=== PATIENT | male | born 1970 | race American Indian/Alaskan Native ===

== ENCOUNTER 2017-07-04 14:29 | Inpatient (IN) | payer MEDICAID ==
[2017-07-04 15:10] LABS: BASO # 0.1 K/uL (0.0-0.2); BASO % 0.7 % (0.0-2.0); EOS # 0.2 K/uL (0.0-0.7); EOS % 2.1 % (0.0-4.0); HEMOGLOBIN 10.5 g/dL (12.0-18.0); LYMPH # 2.4 K/uL (1.0-4.3); LYMPH % 21.4 % (20.0-40.0); MEAN CELL VOLUME 88.2 fL (80.0-94.0); MEAN CORPUSCULAR HEMOGLOBIN 28.2 pg (27.0-31.0); MEAN PLATELET VOLUME 8.4 fL (7.2-11.7); MONO % 9.1 % (0.0-10.0); NEUT # 7.4 K/uL (1.8-7.0); NEUT % 66.7 % (50.0-75.0); RBC 3.73 Mil/uL (4.40-5.90); RED CELL DISTRIBUTION WIDTH 15.3 % (11.5-14.5); WHITE BLOOD COUNT 11.1 K/uL (4.8-10.8)
[2017-07-04 15:25] LABS: SQUAMOUS EPITHIAL < 1 /hpf (0-5); URINE BILIRUBIN NEGATIVE (NEGATIVE); URINE BLOOD NEGATIVE (NEGATIVE); URINE CLARITY Clear (Clear); URINE COLOR Yellow (YELLOW); URINE GLUCOSE (UA) NORMAL (Normal); URINE LEUKOCYTE ESTERASE NEG Leu/uL (Negative); URINE NITRATE NEGATIVE (NEGATIVE); URINE PROTEIN 2+ mg/dL (NEGATIVE)
[2017-07-04 15:29] LABS: BARBITURATES, UR NEGATIVE (NEGATIVE); BENZODIAZEPINES, UR NEGATIVE (NEGATIVE); PHENCYCLIDINE, UR NEGATIVE (NEGATIVE)
[2017-07-04 15:33] LABS: ALB/GLOB RATIO 1.1 (1.0-2.1); ALBUMIN 4.1 g/dL (3.5-5.0); ALT/SGPT 27 U/L (21-72); AST/SGOT 35 U/L (17-59); BLOOD UREA NITROGEN 34 mg/dL (9-20); CALCIUM 7.7 mg/dl (8.6-10.4); GFR AFRICAN-AMERICAN 9; GFR NON-AFRICAN AMERICAN 8
[2017-07-04 16:05] LABS: OPIATES, UR POSITIVE (NEGATIVE)
--- NOTE | 2017-07-04 17:29 | C.PDOC ---
History Of Present Illness 47 y/o male hx ESRD on HD presents to the ED requesting for Detox for heroin abuse. Patient was re-screened by crisis on a phone and has a bed holding for him. The patient states he has been a heroin abuser for 15 years. The patient has been taking injections of 50-100 bags a day and last use was 10am today. The last HD was yesterday. The patient denies physical complaints, and suicidal ideation. Time Seen by Provider: 07/04/17 15:25 Chief Complaint (Nursing): Substance Abuse History Per: Patient History/Exam Limitations: no limitations Onset/Duration Of Symptoms: Hrs Current Symptoms Are (Timing): Still Present Modifying Factor(s): Other (Heroin ) Associated Symptoms: denies: Suicidal Thoughts Additional History Per: Patient Past Medical History Reviewed: Historical Data, Nursing Documentation, Vital Signs Vital Signs: Last Vital Signs Temp 98.4 F 07/04/17 19:26 Pulse 56 L 07/04/17 19:26 Resp 18 07/04/17 19:26 BP 149/85 07/04/17 19:26 Pulse Ox 98 07/04/17 20:59 - Medical History PMH: HTN Denies: Diabetes, Hepatitis, HIV, Seizures, Sexually Transmitted Disease Surgical History: No Surg Hx Family History: States: No Known Family Hx - Social History Hx Alcohol Use: No Hx Substance Use: Yes - Immunization History Hx Tetanus Toxoid Vaccination: Yes Hx Influenza Vaccination: Yes Hx Pneumococcal Vaccination: No Review Of Systems Except As Marked, All Systems Reviewed And Found Negative. Constitutional: Negative for: Fever, Chills Respiratory: Negative for: Shortness of Breath Neurological: Positive for: Altered Mental Status, Other (last use of Heroin was 10am today). Negative for: Dizziness Psych: Negative for: Suicidal ideation Physical Exam - Physical Exam Appears: Non-toxic, No Acute Distress Skin: Warm, Dry Head: Atraumatic, Normacephalic Eye(s): bilateral: Normal Inspection Oral Mucosa: Moist Neck: Supple Chest: Symmetrical, Other (AV fistula right upper chest with no signs of infection ) Cardiovascular: Rhythm Regular Respiratory: Normal Breath Sounds, No Rales, No Rhonchi Gastrointestinal/Abdominal: Soft, No Tenderness, No Guarding, No Rebound Back: Normal Inspection Extremity: Capillary Refill (2<sec. ) Neurological/Psych: Oriented x3, Normal Speech, Normal Cognition, Other (no suicidal ideation ) Gait: Steady ED Course And Treatment - Laboratory Results Result Diagrams: 07/04/17 15:05 07/04/17 15:05 O2 Sat by Pulse Oximetry: 98 (RA) Progress Note: Labs were sent . Patient is medically cleared for detox and was seen by Crisis and accepted for detox admission. Upon reassessment, the patient is afebrile The patient will need to have dialysis tomorrow. Disposition - Disposition Disposition: HOSPITALIZED Disposition Time: 17:28 Condition: STABLE - Clinical Impression Clinical Impression: Drug dependence, ESRD (end stage renal disease) on dialysis - PA / IT RISK ANALYST / Resident Statement MD/DO has examined the patient and agrees with the treatment plan. - Scribe Statement The provider has reviewed the documentation as recorded by the Popeye Ayers Decision To Admit - Pt Status Changed To: Hospital Disposition Of: Inpatient - Admit Certification Admit to Inpatient:: After my assessment, the patient will require hospitalization for at least two midnights. This is because of the severity of symptoms shown, intensity of services needed, and/or the medical risk in this patient being treated as an outpatient. - InPatient: Physician Admission Certification: I certify that this patient requires 2 or more midnights of care for the following reason:: Detox will need more than 2 days. - . Bed Request Type: Detox Admitting Physician: Vianca Richards Patient Diagnosis: Drug dependence, ESRD (end stage renal disease) on dialysis
--- NOTE | 2017-07-04 18:42 | PCM.BM ---
<Julia Barth - Last Filed: 07/04/17 18:40> Treatment Plan Problems - Problems identified on initial assessmt potiential for opiate withdrawal Date Initiated: 07/04/17 Time Initiated: 18:41 Assessment reference: NA Status: Active Treatment assets and liabiliti Patient Assests: ADL independent Patient Liabilities: dietary restrictions, substance abuse, medical problems - Milieu Protocol Maintain good personal hygiene: daily Encourage regular showers, daily Remind patient to perform daily oral care, daily Assist patient to perform ADL's Maintain personal safety: every shift Educate patient to report safety concerns to staff, every shift Monitor environment for contraband/sharps Medication safety: Monitor for expected outcome, potential side effects: every shift, Assess barriers to learning: every shift, Assess readiness for medication education: every shift <Vance Barnett - Last Filed: 07/05/17 09:51> - Diagnosis (1) Opioid use disorder, severe, dependence Status: Acute Interventions: 07/05/17 09:51 * Assess 7x/week regarding severity of withdrawal * Educate regarding risks, benefits, side effects and alternatives of medications * Use Motivational Interviewing for abstinence * Use CBT for relapse prevention * Medication management for withdrawal symptoms * Encourage medication assisted treatment *
--- NOTE | 2017-07-05 13:26 | CP.PCM.CON ---
<Juan Carlos Jordan - Last Filed: 07/05/17 16:07> History of Present Illness - History of Present Illness History of Present Illness: CC: pain and swelling right forearm HPI: Patient is a 47 year old with a history of HTN, ESRD, heroin use disorder is complaining of right forearm pain and swelling which started yesterday. Patient is a IV heroin user who uses anywhere between 3-40 bags of heroin a day. He is here for detox however a medical consult was placed for a concern for cellulitis. He denies fever, chills, vomiting, chest pain, shortness of breath, cough, or rash. He also denies any discharge from the site of pain. Patient does admit to some nausea which he is associating with heroin withdrawal. Patient has dialysis 3 times week and keeps a schedule of Saturday, Saturday, and Saturday. PMH: see above PSH: right tanna cath FH: denies any family history of heart disease, cancer, or kidney disease. SH: smokes 1 pack of cigarettes a day, denies etoh use, uses IV heroin everyday 3-40 bags. Medication: takes no medication at home. Review of Systems - Review of Systems All systems: reviewed and no additional remarkable complaints except - Constitutional Constitutional: absent: Chills, Fever, Malaise - EENT Eyes: absent: Change in Vision Ears: absent: Dizziness - Cardiovascular Cardiovascular: absent: Chest Pain, Dyspnea, Palpitations - Respiratory Respiratory: absent: Cough, Dyspnea - Gastrointestinal Gastrointestinal: Abdominal Pain, Nausea. absent: Constipation, Diarrhea, Vomiting - Genitourinary Genitourinary: absent: Dysuria - Musculoskeletal Musculoskeletal: absent: Numbness, Tingling - Integumentary Integumentary: absent: Wounds - Neurological Additional comments: No numbness or tingling distant to the affected site. - Endocrine Endocrine: absent: Excessive Sweating, Fatigue Past Patient History - Past Medical History & Family History Past Medical History?: Yes - Past Social History Smoking Status: Heavy Smoker > 10 Cigarettes Daily - CARDIAC Hx Hypertension: Yes - PULMONARY Hx Tuberculosis: No - NEUROLOGICAL Hx Seizures: No - RENAL Hx Dialysis: Yes (M-W-F) Type of Dialysis Access: Right Subclavian HD Cath Date of Last Dialysis Treatment: 07/03/17 - HEMATOLOGICAL/ONCOLOGICAL Hx Human Immunodeficiency Virus (HIV): No - INTEGUMENTARY Hx Dermatological Problems: No - MUSCULOSKELETAL/RHEUMATOLOGICAL Hx Falls: No - GASTROINTESTINAL Hx Gastrointestinal Disorders: No - GENITOURINARY/GYNECOLOGICAL Hx Sexually Transmitted Disorders: No - PSYCHIATRIC Hx Substance Use: Yes - SURGICAL HISTORY Hx Surgeries: No - ANESTHESIA Hx Anesthesia: No Hx Anesthesia Reactions: No Hx Malignant Hyperthermia: No Has any member of the family had a problem w/ anesthesia?: No Meds Allergies/Adverse Reactions: Allergies Allergy/AdvReac Type Severity Reaction Status Date / Time No Known Allergies Allergy Verified 07/04/17 14:44 - Medications Medications: Current Medications Clonidine HCl (Catapres) 0.1 mg PO Q8 PRN PRN Reason: COWS Score More or Equal to 5 Epoetin Pasquale (Procrit) 4,000 unit IV MWF [facility] Loperamide HCl (Imodium) 2 mg PO Q8 PRN PRN Reason: Diarrhea Ondansetron HCl (Zofran Tab) 4 mg PO Q8 PRN PRN Reason: Nausea/Vomiting Last Admin: 07/05/17 12:10 Dose: 4 mg Trazodone HCl (Desyrel) 50 mg PO HS PRN PRN Reason: Insomnia Vitamin B Complex/Vit C/Folic Acid (Nephro-Enrike) 1 tab PO 0800 [facility] Physical Exam - Constitutional Appears: Non-toxic, No Acute Distress - Head Exam Head Exam: NORMAL INSPECTION - Eye Exam Eye Exam: Normal appearance, PERRL. absent: Nystagmus, Scleral icterus Pupil Exam: NORMAL ACCOMODATION - ENT Exam ENT Exam: Normal Exam - Respiratory Exam Respiratory Exam: Clear to Auscultation Bilateral. absent: Rales, Rhonchi, Wheezes Additional comments: tanna cath on the right side. - Cardiovascular Exam Cardiovascular Exam: REGULAR RHYTHM, RRR, +S1, +S2. absent: Gallop, Rubs - GI/Abdominal Exam GI & Abdominal Exam: Normal Bowel Sounds, Tenderness. absent: Guarding, Rebound , Soft - Extremities Exam Extremities exam: Positive for: normal inspection. Negative for: pedal edema - Back Exam Back exam: NORMAL INSPECTION. absent: CVA tenderness (L), CVA tenderness (R) - Neurological Exam Neurological exam: Alert, Normal Gait, Oriented x3 - Psychiatric Exam Psychiatric exam: Normal Affect, Normal Mood - Skin Additional comments: some ropiness, a minimal tender on the affected site. small blancheable erythema. No discharge. Results - Vital Signs Recent Vital Signs: Last Vital Signs Temp 98.2 F 07/05/17 07:33 Pulse 56 L 07/05/17 08:34 Resp 18 07/05/17 08:34 BP 160/94 H 07/05/17 08:34 Pulse Ox 98 07/05/17 07:33 - Labs Result Diagrams: 07/04/17 15:05 07/04/17 15:05 Labs: Laboratory Results - last 24 hr 07/04/17 07/04/17 07/04/17 15:05 15:05 15:05 WBC 11.1 H RBC 3.73 L Hgb 10.5 L Hct 32.9 L MCV 88.2 MCH 28.2 MCHC 32.0 L RDW 15.3 H Plt Count 216 MPV 8.4 Neut % (Auto) 66.7 Lymph % (Auto) 21.4 Hart % (Auto) 9.1 Eos % (Auto) 2.1 Baso % (Auto) 0.7 Neut # 7.4 H Lymph # 2.4 Hart # 1.0 H Eos # 0.2 Baso # 0.1 Sodium 134 Potassium 5.0 Chloride 94 L Carbon Dioxide 29 Anion Gap 15 BUN 34 H Creatinine 7.5 H* Est GFR ( Amer) 9 Est GFR (Non-Af Amer) 8 Random Glucose 77 Calcium 7.7 L Total Bilirubin 0.7 AST 35 ALT 27 Alkaline Phosphatase 63 Total Protein 7.7 Albumin 4.1 Globulin 3.6 Albumin/Globulin Ratio 1.1 Urine Color Yellow Urine Clarity Clear Urine pH 8.0 Ur Specific [place] 1.010 Urine Protein 2+ H Urine Glucose (UA) Normal Urine Ketones Negative Urine Blood Negative Urine Nitrate Negative Urine Bilirubin Negative Urine Urobilinogen 2.0 Ur Leukocyte Esterase Neg Urine WBC (Auto) < 1 Urine RBC (Auto) < 1 Ur Squamous Epith Cells < 1 Urine Opiates Screen Urine Methadone Screen Ur Barbiturates Screen Ur Phencyclidine Scrn Ur Amphetamines Screen U Benzodiazepines Scrn U Oth Cocaine Metabols U Cannabinoids Screen Alcohol, Quantitative < 10 07/04/17 15:05 WBC RBC Hgb Hct MCV MCH MCHC RDW Plt Count MPV Neut % (Auto) Lymph % (Auto) Hart % (Auto) Eos % (Auto) Baso % (Auto) Neut # Lymph # Hart # Eos # Baso # Sodium Potassium Chloride Carbon Dioxide Anion Gap BUN Creatinine Est GFR ( Amer) Est GFR (Non-Af Amer) Random Glucose Calcium Total Bilirubin AST ALT Alkaline Phosphatase Total Protein Albumin Globulin Albumin/Globulin Ratio Urine Color Urine Clarity Urine pH Ur Specific [place] Urine Protein Urine Glucose (UA) Urine Ketones Urine Blood Urine Nitrate Urine Bilirubin Urine Urobilinogen Ur Leukocyte Esterase Urine WBC (Auto) Urine RBC (Auto) Ur Squamous Epith Cells Urine Opiates Screen Positive H Urine Methadone Screen Negative Ur Barbiturates Screen Negative Ur Phencyclidine Scrn Negative Ur Amphetamines Screen Negative U Benzodiazepines Scrn Negative U Oth Cocaine Metabols Negative U Cannabinoids Screen Positive H Alcohol, Quantitative Assessment & Plan (1) Phlebitis/thrombophlebitis Assessment and Plan: Patient most likely has a thrombophlebitis, will get warm compresses at least twice a day and also start Aspirin 81m BID. Will get a ultrasound to look for abscess, however that is very unlikely since the symptoms just happened yesterday. Will also get a duplex as well to look for DVT. Status: Acute (2) ESRD (end stage renal disease) on dialysis Assessment and Plan: His grader operator does not come here so Dr. Lovelace consulted. continue his dialysis schedule. Procrit 4000 units MW Nephro-Enrike Status: Chronic (3) HTN (hypertension) Assessment and Plan: restarted his BP medications. Hydralazine 25mg TID Cozaar 50mg daily. Status: Chronic (4) Opioid use disorder, severe, dependence Assessment and Plan: Management per psychiatry team, Methadone 15mg Status: Acute (5) Prophylactic measure Assessment and Plan: not indicated at this time. Immodium, clonidine, and Zofran as needed. Status: Acute <Suhas Wadsworth - Last Filed: 07/05/17 19:30> Meds - Medications Medications: Current Medications Aspirin (Ecotrin) 81 mg PO BID [facility] Last Admin: 07/05/17 17:07 Dose: 81 mg Clonidine HCl (Catapres) 0.1 mg PO Q8 PRN PRN Reason: COWS Score More or Equal to 5 Dicyclomine HCl (Bentyl) 10 mg PO Q6 PRN PRN Reason: stomach cramps Last Admin: 07/05/17 18:22 Dose: 10 mg Doxercalciferol (Hectorol) 1 mcg PO MWF [facility] Epoetin Pasquale (Procrit) 4,000 unit IV [facility] [place] [facility] Heparin Sodium (Porcine) (Heparin) 2,000 units IVP [facility] [place] Last Admin: 07/05/17 15:06 Dose: 2,000 units Heparin Sodium (Porcine) (Heparin) 4,600 units IVP [facility] [place] [facility] Last Admin: 07/05/17 15:07 Dose: 4,600 units Hydralazine HCl (Apresoline) 25 mg PO TID [facility] Last Admin: 07/05/17 18:22 Dose: 25 mg Loperamide HCl (Imodium) 2 mg PO Q8 PRN PRN Reason: Diarrhea Losartan Potassium (Cozaar) 50 mg PO QPM [facility] Last Admin: 07/05/17 18:22 Dose: 50 mg Methadone HCl (Methadone) 15 mg PO Q24H [facility] PRN Reason: Taper Stop: 07/10/17 09:59 Ondansetron HCl (Zofran Tab) 4 mg PO Q8 PRN PRN Reason: Nausea/Vomiting Last Admin: 07/05/17 12:10 Dose: 4 mg Trazodone HCl (Desyrel) 50 mg PO HS PRN PRN Reason: Insomnia Vitamin B Complex/Vit C/Folic Acid (Nephro-Enrike) 1 tab PO 0800 [facility] Results - Vital Signs Recent Vital Signs: Last Vital Signs Temp 99.2 F 07/05/17 17:18 Pulse 60 07/05/17 17:18 Resp 18 07/05/17 17:18 BP 176/102 H 07/05/17 17:18 Pulse Ox 97 07/05/17 17:18 - Labs Result Diagrams: 07/04/17 15:05 07/04/17 15:05 Attending/Attestation - Attestation I have personally seen and examined this patient.: Yes I have fully participated in the care of the patient.: Yes I have reviewed all pertinent clinical information: Yes Notes (Text): 07/05/17 19:25 Patient was seen and examined in the HD Unit shortly after resident. History, Physical, Exam, Assessment and Plan were gone over with the resident. Follow Up U/S or Left Arm to differentiate between likely Superficial Thrombophlebitis vs Abscess. Suhas Wadsworth D.O.
--- NOTE | 2017-07-05 13:39 | PCM.PSYCH ---
Initial Psychiatric Evaluation - Initial Psychiatric Evaluation Type of Admission: Voluntary Legal Status: Capacity Chief Complaint (in patient's own words): "I want detox from heroin" History of Present Illness and Precipitating Events: Patient is a 47 year old AA male who was admitted for detox from opioids. He is engaged and lives with his fiance. He has 3 children ages 24,20,12. He is currently unemployed and on disability. He states he uses 30 bags of heroin IV daily. Last time used was yesterday. He currently states he is feeling withdrawal symptoms. He states he is very nauseous and weak. He also reports daily use of marijuana. He denies alcohol use , pills, or cocaine. He has never been to detox or rehab in the past. He was incarcerated for 3 years , which was his longest time of sobriety, and began using shortly after his release. He has no legal issues at this time. His plan after detox is to start a rehab program. He wishes to go inpatient but due to his dialysis needs the treatment team suggested an outpatient may be best for him. Past psych hx: Denies Family psych hx: Denies PMH: HTN, Kidney failure: subclavian HD catheter, dialysis MWF Current Medications: Active Medications Generic Name Dose Route Start Last Admin Trade Name Freq PRN Reason Stop Dose Admin Clonidine HCl 0.1 mg 07/04/17 17:33 Catapres PO Q8 PRN COWS Score More or Equal to 5 Epoetin Pasquale 4,000 unit 07/08/17 09:00 Procrit IV MWF [facility] Loperamide HCl 2 mg 07/04/17 17:33 Imodium PO Q8 PRN Diarrhea Ondansetron HCl 4 mg 07/04/17 17:33 07/05/17 12:10 Zofran Tab PO 4 mg Q8 PRN Administration Nausea/Vomiting Trazodone HCl 50 mg 07/04/17 17:34 Desyrel PO HS PRN Insomnia Vitamin B Complex/Vit C/Folic Acid 1 tab 07/06/17 08:00 Nephro-Enrike PO 0800 [facility] Past Psychiatric History - Past Psychiatric History Pertinent Medical Hx (Current Medical&Sleep Prob, Allergies): Allergies Allergy/AdvReac Type Severity Reaction Status Date / Time No Known Allergies Allergy Verified 07/04/17 14:44 Review of Systems - Review of Systems All systems: reviewed and no additional remarkable complaints except - Constitutional Constitutional: Weakness - Musculoskeletal Musculoskeletal: Muscle Weakness - Neurological Neurological: UNREMARKABLE - Psychiatric Psychiatric: absent: Anxiety, Depression, Hallucinations, Homicidal Ideation, Paranoia, Visual Hallucinations Mental Status Examination - Personal Presentation Personal Presentation: Looks stated age - Affect Affect: Constricted - Motor Activity Motor Activity: Calm - Reliability in Providing Information Reliability in Providing Information: Good - Speech Speech: Organized - Mood Mood: Neutral - Formal Thought Process Formal Thought Process: No Impairment - Cognitive Functions Orientation: Person, Place, Situation, Time Sensorium: Alert Attention/Concentration: Attentive Abstract Thinking: [place] Estimate of Intelligence: Below average - Risk Risk: Withdrawal, Diminished functioning DSM 5 DX - DSM 5 DSM 5 Diagnosis: Opioid use d/o- severe Opioid withdrawal - Recommended/Plan of Treatment Treatment Recommendations and Plan of Treatment: Methadone detox starrted As needed medications Dialysis will be provided MWF Attend groups and activities Supportive therapy and psychoeducation DC for abstinence CBT for relapse prevention Encourage MAT Refer to rehab or IOP Attend self-help groups as well 36mins
--- NOTE | 2017-07-05 15:40 | CP.PCM.CON ---
History of Present Illness - History of Present Illness History of Present Illness: Initial Nephrology Consultation: Assessment: Stable drug abuse, bradycardia Hypertensive Chronic Kidney Disease (I12.0) End stage renal disease (N18.6) dependence on hemodialysis (Z99.2) (MWF) via permacath Anemia (D64.9), Hyperphosphatemia (E83.39), Secondary Hyperparathyroidism (E21.1 ), HTN (I12.0) Plan: Will plan for HD today as ordered. Continue with Nephrovite 1 tab/day. PRBC as needed for anemia. On BHARATHI as epogen with HD Continue with phos binders home dose, check phos level Continue with hectorol 1 mcg with HD BP control with meds as ordered. Patient on RAAS ale as losartan. can increase his dose of losartan and or hydralazine if needed for HTN Glycemic control, Dialysis consistent diet Further work up/management as per primary team Dose meds/antibiotics (if needed) for ESRD status. Avoid fleets enema/magnesium based laxatives. Thanks for allowing me to participate in care of your patient. Will follow patient with you. Please call if any Qs please be cautious with use of clonidine considering his bradycardia. Dr Juancarlos Lovelace Office: [phone] Chief Complaint; detox reason for consult: ESRD and HTN HPI: Pt is a 47 M with hx of ESRD on hemodialysis (MWF) via permacath, last dialysis sat, chronic anemia, hyperphosphatemia, secondary hyperparathyroidism, hypertension, active drug abuse here for detox. pt on HD since november 2016 in [facility]. he is not aware about reason for ESRD. makes urine ROS: Cardiovascular: No chest pain. Pulmonary: No shortness of breath Gastrointestinal: denies abdominal pain No nausea. No vomiting. Genitourinary: No pain while urinating. Denies blood in urine. All other negative Physical Examination: General Appearance: Comfortable, in no acute respiratory distress, co-operative . Vitals reviewed and noted as below Head; Atraumatic, normocephalic ENT: no ulcers no thrush. Tongue is midline. Oropharynx: no rash or ulcers. EYES: Pupils are equal, round and reactive to light accommodation. Eye muscles and extraocular movement intact. Sclera is anicteric. Neck; supple no lymphadenopathy, no thyromegaly or bruit Lungs: Normal respiratory rate/effort. Breath sounds bilateral equal and clear Heart: Normal rate. s1s2 normal. No rub or gallop. Extremities: no edema. No varicose veins Neurological: Patient is alert, awake and oriented to person, place and time. No focal deficit. Strength bilateral appropriate and equal Skin: Warm and dry. Normal turgor. No rash. Palpitation: Normal elasticity for age Abdomen: Abdomen is soft. Bowel sounds +. There is no abdominal tenderness, no guarding/rigidity or organomegaly Psych: normal insight and normal affect/mood MSK: no joint tenderness or swelling. Digits and nails normal, no deformity : kidney or bladder not palpable Access: permacath Labs/imaging reviewed. Past medical history, past surgical history, family history, social history, allergy reviewed and noted as below Family Hx: no hx of CKD. Non contributory Past Patient History - Past Medical History & Family History Past Medical History?: Yes - Past Social History Smoking Status: Heavy Smoker > 10 Cigarettes Daily - CARDIAC Hx Hypertension: Yes - PULMONARY Hx Tuberculosis: No - NEUROLOGICAL Hx Seizures: No - RENAL Hx Dialysis: Yes (M-W-F) Type of Dialysis Access: Right Subclavian HD Cath Date of Last Dialysis Treatment: 07/03/17 - HEMATOLOGICAL/ONCOLOGICAL Hx Human Immunodeficiency Virus (HIV): No - INTEGUMENTARY Hx Dermatological Problems: No - MUSCULOSKELETAL/RHEUMATOLOGICAL Hx Falls: No - GASTROINTESTINAL Hx Gastrointestinal Disorders: No - GENITOURINARY/GYNECOLOGICAL Hx Sexually Transmitted Disorders: No - PSYCHIATRIC Hx Substance Use: Yes - SURGICAL HISTORY Hx Surgeries: No - ANESTHESIA Hx Anesthesia: No Hx Anesthesia Reactions: No Hx Malignant Hyperthermia: No Has any member of the family had a problem w/ anesthesia?: No Meds Allergies/Adverse Reactions: Allergies Allergy/AdvReac Type Severity Reaction Status Date / Time No Known Allergies Allergy Verified 07/04/17 14:44 - Medications Medications: Current Medications Aspirin (Ecotrin) 81 mg PO BID [facility] Clonidine HCl (Catapres) 0.1 mg PO Q8 PRN PRN Reason: COWS Score More or Equal to 5 Epoetin Pasquale (Procrit) 4,000 unit IV MWF [facility] Heparin Sodium (Porcine) (Heparin) 2,000 units IVP MWF [facility] Last Admin: 07/05/17 15:06 Dose: 2,000 units Heparin Sodium (Porcine) (Heparin) 4,600 units IVP MWF [facility] Last Admin: 07/05/17 15:07 Dose: 4,600 units Hydralazine HCl (Apresoline) 25 mg PO TID [facility] Loperamide HCl (Imodium) 2 mg PO Q8 PRN PRN Reason: Diarrhea Losartan Potassium (Cozaar) 50 mg PO QPM [facility] Methadone HCl (Methadone) 10 mg PO ONCE ONE Stop: 07/05/17 18:01 Methadone HCl (Methadone) 15 mg PO Q24H [facility] PRN Reason: Taper Stop: 07/10/17 09:59 Ondansetron HCl (Zofran Tab) 4 mg PO Q8 PRN PRN Reason: Nausea/Vomiting Last Admin: 07/05/17 12:10 Dose: 4 mg Trazodone HCl (Desyrel) 50 mg PO HS PRN PRN Reason: Insomnia Vitamin B Complex/Vit C/Folic Acid (Nephro-Enrike) 1 tab PO 0800 [facility] Results - Vital Signs Recent Vital Signs: Last Vital Signs Temp 98.9 F 07/05/17 13:00 Pulse 50 L 07/05/17 13:00 Resp 20 07/05/17 13:00 BP 171/94 H 07/05/17 13:00 Pulse Ox 100 07/05/17 13:00 - Labs Result Diagrams: 07/04/17 15:05 07/04/17 15:05 Labs: Laboratory Results - last 24 hr 07/04/17 07/04/17 15:05 15:05 Sodium 134 Potassium 5.0 Chloride 94 L Carbon Dioxide 29 Anion Gap 15 BUN 34 H Creatinine 7.5 H* Est GFR ( Amer) 9 Est GFR (Non-Af Amer) 8 Random Glucose 77 Calcium 7.7 L Total Bilirubin 0.7 AST 35 ALT 27 Alkaline Phosphatase 63 Total Protein 7.7 Albumin 4.1 Globulin 3.6 Albumin/Globulin Ratio 1.1 Urine Opiates Screen Positive H U Cannabinoids Screen Positive H Alcohol, Quantitative < 10
--- NOTE | 2017-07-05 17:05 | CP.PCM.PN ---
Subjective - Date & Time of Evaluation Date of Evaluation: 07/05/17 Time of Evaluation: 04:58 - Subjective Subjective: House Doctor Page Patient stopped dialysis early due to abdominal pain. I spoke with patient and explained that his abdominal pain is due to his withdrawal not due to his dialysis. Patient understood and said he knew that his abdominal pain was from his withdrawal. Patient explained that the dialysis would not make his abdominal pain worse and that he should finish the dialysis. Patient explained that stopping the dialysis early could cause increase in his BUN/ Creatinine and electrolyte abnormalities. Patient said, "I know. I have stopped dialysis early before." Patient not willing to continue dialysis. Objective - Vital Signs/Intake and Output Vital Signs (last 24 hours): Temp Pulse Resp BP Pulse Ox 98.5 F 49 L 18 163/95 H 100 07/05/17 14:30 07/05/17 16:19 07/05/17 16:19 07/05/17 16:19 07/05/17 14:30 - Medications Medications: Current Medications Aspirin (Ecotrin) 81 mg PO BID [facility] Clonidine HCl (Catapres) 0.1 mg PO Q8 PRN PRN Reason: COWS Score More or Equal to 5 Doxercalciferol (Hectorol) 1 mcg PO MWF [facility] Epoetin Pasquale (Procrit) 4,000 unit IV MWF [facility] Heparin Sodium (Porcine) (Heparin) 2,000 units IVP F [facility] Last Admin: 07/05/17 15:06 Dose: 2,000 units Heparin Sodium (Porcine) (Heparin) 4,600 units IVP F [facility] Last Admin: 07/05/17 15:07 Dose: 4,600 units Hydralazine HCl (Apresoline) 25 mg PO TID [facility] Loperamide HCl (Imodium) 2 mg PO Q8 PRN PRN Reason: Diarrhea Losartan Potassium (Cozaar) 50 mg PO QPM [facility] Methadone HCl (Methadone) 10 mg PO ONCE ONE Stop: 07/05/17 18:01 Methadone HCl (Methadone) 15 mg PO Q24H [facility] PRN Reason: Taper Stop: 07/10/17 09:59 Ondansetron HCl (Zofran Tab) 4 mg PO Q8 PRN PRN Reason: Nausea/Vomiting Last Admin: 07/05/17 12:10 Dose: 4 mg Trazodone HCl (Desyrel) 50 mg PO HS PRN PRN Reason: Insomnia Vitamin B Complex/Vit C/Folic Acid (Nephro-Enrike) 1 tab PO 0800 [facility] - Labs Labs: 07/04/17 15:05 07/04/17 15:05
--- NOTE | 2017-07-05 20:48 | US ---
EXAM: US Left Upper Extremity Non-Vascular, Complete EXAM DATE/TIME: 07/05/2017 4:08 PM CLINICAL HISTORY: 47 years old, male; Signs and symptoms; Edema and other: R/O abscess; Edema is localized; Arm, lower; Left; Additional info: Need to rule out abscess of the left forearm; ADDITIONAL HISTORY: Opioid abuse and dependency who TECHNIQUE: Real-time ultrasound scan of the left upper extremity with image documentation. COMPARISON: There are no prior studies for comparison. FINDINGS: Soft tissues: There is diffuse edema in the superficial soft tissues greatest in the proximal, volar soft tissues of the left forearm. Adjacent superficial veins are patent on color Doppler imaging. There is a 2 x 0.5 x 1 cm hypoechoic solid nodule in the superficial soft tissues. There is a small fluid collection, 8 x 2 x 6 mm. There is surrounding capsule. Superficial veins: See above IMPRESSION: Findings suggest cellulitis, no discrete abscess
[2017-07-06] MEDS ORDERED: Aluminum Hydroxide/Magnesium Hydroxide Susp (30 mL) PO PRN (06:00)
[2017-07-06 08:26] LABS: BASO # 0.1 K/uL (0.0-0.2); BASO % 0.9 % (0.0-2.0); EOS # 0.1 K/uL (0.0-0.7); EOS % 1.5 % (0.0-4.0); HEMOGLOBIN 11.6 g/dL (12.0-18.0); LYMPH # 1.7 K/uL (1.0-4.3); LYMPH % 24.9 % (20.0-40.0); MEAN CELL VOLUME 87.6 fL (80.0-94.0); MEAN CORPUSCULAR HEMOGLOBIN 29.5 pg (27.0-31.0); MEAN CORPUSCULAR HGB CONC 33.7 g/dL (33.0-37.0); MEAN PLATELET VOLUME 8.6 fL (7.2-11.7); MONO # 0.4 K/uL (0.0-0.8); MONO % 6.3 % (0.0-10.0); NEUT # 4.4 K/uL (1.8-7.0); NEUT % 66.4 % (50.0-75.0); RBC 3.92 Mil/uL (4.40-5.90); RED CELL DISTRIBUTION WIDTH 15.1 % (11.5-14.5); WHITE BLOOD COUNT 6.6 K/uL (4.8-10.8)
[2017-07-06 08:48] LABS: ALBUMIN 3.7 g/dL (3.5-5.0); CALCIUM 8.3 mg/dl (8.6-10.4)
[2017-07-06] MEDS: Multivitamin Vitamin B Complex (Nephro-Vite) Tab PO SCH (09:18)
--- NOTE | 2017-07-06 10:13 | PCM.PYCHPN ---
Psychiatric Progress Note - Psychiatric Progress Note Patient seen today, length of contact: 15 min Patient Chief Complaint: I am feeling little better.' Problems Identified/Issues Discussed: Patient seen and evaluated, chart reviewed and discussed with the nurse. The patient reports improvement in his mood and reports improvement in withdrawal symptoms. He still reports anxiety, headaches and sweating. As per the nurse patient is improving. He denies any suicidal ideation or homicidal ideation. Patient is taking medications and denies any side effects. Symptoms are improving but needs more time for stabilization. Supportive therapy and psychoeducation were given. Medication Change: Yes (Methadone taper) Medical Record Reviewed: Yes Mental Status Examination - Cognitive Function Orientation: Person, Place, Situation, Time Memory: Intact Attention: WNL Concentration: WNL Association: WNL Fund of Knowledge: Poor - Mood Mood: Neutral - Affect Affect: Constricted - Speech Speech: Soft - Formal Thought Process Formal Thought Process: No Impairment - Suicidal Ideation Suicidal Ideation: No - Homicidal Ideation Homicidal Ideation: No Goal/Treatment Plan - Goal/Treatment Plan Need for Continued Stay: Severe depression anxiety, Severe functional impairment Progress Toward Problem(s) and Goals/Treatment Plan: Opioid use d/o- severe Opioid withdrawal Methadone detox As needed medications Dialysis will be provided MWF Attend groups and activities Supportive therapy and psychoeducation [place] for abstinence CBT for relapse prevention Encourage MAT Refer to rehab or IOP Attend self-help groups as well - Smoking Cessation Smoking Cessation Initiated: No
[2017-07-06] MEDS: Saccharomyces Boulardi 250 mg Cap PO SCH ×2 (14:49→17:08)
[2017-07-06] MEDS ORDERED: Magnesium Hydroxide Susp 30 ml UD PO ONE (16:18)
--- NOTE | 2017-07-06 16:20 | CP.PCM.PN ---
<Afsaneh Burdick DO - Last Filed: 07/06/17 17:10> Subjective - Date & Time of Evaluation Date of Evaluation: 07/06/17 Time of Evaluation: 09:00 - Subjective Subjective: PGy2 medicine progress note for Dr. Wadsworth's service Patient seen and examined. Patient states he feels well, aside from stomach discomfort related to his detox. Patient states his arm is not painful, but does feel warm. Objective - Vital Signs/Intake and Output Vital Signs (last 24 hours): Temp Pulse Resp BP Pulse Ox 98.8 F 45 L 18 163/101 H 99 07/06/17 09:00 07/06/17 09:00 07/06/17 09:00 07/06/17 09:00 07/06/17 09:00 - Medications Medications: Current Medications Al Hydrox/Mg Hydrox/Simethicone (Maalox 30 Ml) 30 ml PO Q8H PRN PRN Reason: Indigestion / Heartburn Last Admin: 07/06/17 06:21 Dose: 30 ml Clindamycin HCl (Cleocin) 300 mg PO TID [facility] Last Admin: 07/06/17 13:29 Dose: 300 mg Clonidine HCl (Catapres) 0.1 mg PO Q8 PRN PRN Reason: COWS Score More or Equal to 5 Last Admin: 07/06/17 06:21 Dose: 0.1 mg Dicyclomine HCl (Bentyl) 10 mg PO Q6 PRN PRN Reason: stomach cramps Last Admin: 07/05/17 18:22 Dose: 10 mg Doxercalciferol (Hectorol) 1 mcg PO [facility] Epoetin Pasquale (Procrit) 4,000 unit IV [facility] Heparin Sodium (Porcine) (Heparin) 2,000 units IVP [facility] Last Admin: 07/05/17 15:06 Dose: 2,000 units Heparin Sodium (Porcine) (Heparin) 4,600 units IVP [facility] Last Admin: 07/05/17 15:07 Dose: 4,600 units Hydralazine HCl (Apresoline) 25 mg PO TID [facility] Last Admin: 07/06/17 13:29 Dose: 25 mg Loperamide HCl (Imodium) 2 mg PO Q8 PRN PRN Reason: Diarrhea Losartan Potassium (Cozaar) 50 mg PO QPM [facility] Last Admin: 07/05/17 18:22 Dose: 50 mg Methadone HCl (Methadone) 15 mg PO Q24H [facility] PRN Reason: Taper Stop: 07/10/17 09:59 Last Admin: 07/06/17 09:17 Dose: 15 mg Nicotine (Nicoderm Cq) 1 patch TD DAILY [facility] Last Admin: 07/06/17 14:49 Dose: 1 patch Ondansetron HCl (Zofran Tab) 4 mg PO Q8 PRN PRN Reason: Nausea/Vomiting Last Admin: 07/06/17 01:02 Dose: 4 mg Saccharomyces Boulardii (Florastor) 250 mg PO BID [facility] Last Admin: 07/06/17 14:49 Dose: 250 mg Trazodone HCl (Desyrel) 50 mg PO HS PRN PRN Reason: Insomnia Last Admin: 07/06/17 01:02 Dose: 50 mg Vitamin B Complex/Vit C/Folic Acid (Nephro-Enrike) 1 tab PO 0800 [facility] Last Admin: 07/06/17 09:18 Dose: 1 tab - Labs Labs: 07/06/17 08:18 07/06/17 08:18 - Constitutional Appears: No Acute Distress - Head Exam Head Exam: ATRAUMATIC, NORMOCEPHALIC - Eye Exam Eye Exam: EOMI - ENT Exam ENT Exam: Mucous Membranes Moist - Respiratory Exam Respiratory Exam: Clear to Ausculation Bilateral, NORMAL BREATHING PATTERN Additional comments: right side portacath - Cardiovascular Exam Cardiovascular Exam: +S1, +S2 - GI/Abdominal Exam GI & Abdominal Exam: Soft, Normal Bowel Sounds - Extremities Exam Additional comments: left middle forearm with area on volar aspect with mild erythema and tenderness , no fluctuance or discharge - Neurological Exam Neurological Exam: Alert, Awake - Skin Skin Exam: Warm Assessment and Plan - Assessment and Plan (Free Text) Assessment: (1) Cellulitis Assessment and Plan: upper extremity ultrasound: there is diffuse edema in the superficial soft tissues. There is a small fluid collection [id number]. Findings suggest cellulitis, no discrete abscess (see full report) starting clindamycin 300mg PO TID florastor 250mg PO BID Status: Acute (2) ESRD (end stage renal disease) on dialysis Assessment and Plan: His mri manager does not come here so Dr. Lovelace consulted. continue his dialysis schedule. Procrit 4000 units MWF Nephro-Enrike Status: Chronic (3) HTN (hypertension) Assessment and Plan: restarted his BP medications. Hydralazine 25mg TID Cozaar 50mg daily. Status: Chronic (4) Opioid use disorder, severe, dependence Assessment and Plan: Management per psychiatry team Status: Acute (5) Prophylactic measure Assessment and Plan: Immodium, clonidine, and Zofran as needed. Status: Acute <Suhas Wadsworth - Last Filed: 07/06/17 18:14> Objective - Vital Signs/Intake and Output Vital Signs (last 24 hours): Temp Pulse Resp BP Pulse Ox 98 F 51 L 20 143/95 H 100 07/06/17 16:00 07/06/17 16:00 07/06/17 16:00 07/06/17 16:00 07/06/17 16:00 - Medications Medications: Current Medications Al Hydrox/Mg Hydrox/Simethicone (Maalox 30 Ml) 30 ml PO Q8H PRN PRN Reason: Indigestion / Heartburn Last Admin: 07/06/17 06:21 Dose: 30 ml Clindamycin HCl (Cleocin) 300 mg PO TID [facility] Last Admin: 07/06/17 17:54 Dose: 300 mg Clonidine HCl (Catapres) 0.1 mg PO Q8 PRN PRN Reason: COWS Score More or Equal to 5 Last Admin: 07/06/17 06:21 Dose: 0.1 mg Dicyclomine HCl (Bentyl) 10 mg PO Q6 PRN PRN Reason: stomach cramps Last Admin: 07/05/17 18:22 Dose: 10 mg Doxercalciferol (Hectorol) 1 mcg PO [facility] Epoetin Pasquale (Procrit) 4,000 unit IV [facility] Heparin Sodium (Porcine) (Heparin) 2,000 units IVP [facility] Last Admin: 07/05/17 15:06 Dose: 2,000 units Heparin Sodium (Porcine) (Heparin) 4,600 units IVP [facility] Last Admin: 07/05/17 15:07 Dose: 4,600 units Hydralazine HCl (Apresoline) 25 mg PO TID [facility] Last Admin: 07/06/17 17:09 Dose: 25 mg Hydroxyzine HCl (Atarax) 25 mg PO Q6 PRN PRN Reason: Anxiety Ibuprofen (Motrin Tab) 600 mg PO Q8 PRN PRN Reason: Pain, moderate (4-7) Loperamide HCl (Imodium) 2 mg PO Q8 PRN PRN Reason: Diarrhea Losartan Potassium (Cozaar) 50 mg PO QPM [facility] Last Admin: 07/06/17 17:09 Dose: 50 mg Methadone HCl (Methadone) 15 mg PO Q24H [facility] PRN Reason: Taper Stop: 07/10/17 09:59 Last Admin: 07/06/17 09:17 Dose: 15 mg Nicotine (Nicoderm Cq) 1 patch TD DAILY [facility] Last Admin: 07/06/17 14:49 Dose: 1 patch Ondansetron HCl (Zofran Tab) 4 mg PO Q8 PRN PRN Reason: Nausea/Vomiting Last Admin: 07/06/17 01:02 Dose: 4 mg Saccharomyces Boulardii (Florastor) 250 mg PO BID [facility] Last Admin: 07/06/17 17:08 Dose: 250 mg Trazodone HCl (Desyrel) 50 mg PO HS PRN PRN Reason: Insomnia Last Admin: 07/06/17 01:02 Dose: 50 mg Vitamin B Complex/Vit C/Folic Acid (Nephro-Enrike) 1 tab PO 0800 [facility] Last Admin: 07/06/17 09:18 Dose: 1 tab - Labs Labs: 07/06/17 08:18 07/06/17 08:18 Attending/Attestation - Attestation I have personally seen and examined this patient.: Yes I have fully participated in the care of the patient.: Yes I have reviewed all pertinent clinical information, including history, physical exam and plan: Yes Notes (Text): 07/06/17 18:11 Patient was seen and examined at 7:45 AM 07/06/17. Exam, assessment and plan were discussed with resident. Suhas Wadsworth D.O.
[2017-07-07] MEDS: Multivitamin Vitamin B Complex (Nephro-Vite) Tab PO SCH (08:12)
[2017-07-07 08:46] LABS: BASO # 0.1 K/uL (0.0-0.2); EOS # 0.2 K/uL (0.0-0.7); EOS % 2.7 % (0.0-4.0); HEMOGLOBIN 11.8 g/dL (12.0-18.0); LYMPH # 1.5 K/uL (1.0-4.3); LYMPH % 22.9 % (20.0-40.0); MEAN CELL VOLUME 87.8 fL (80.0-94.0); MEAN CORPUSCULAR HEMOGLOBIN 29.5 pg (27.0-31.0); MEAN CORPUSCULAR HGB CONC 33.6 g/dL (33.0-37.0); MEAN PLATELET VOLUME 8.5 fL (7.2-11.7); MONO # 0.5 K/uL (0.0-0.8); MONO % 7.1 % (0.0-10.0); NEUT # 4.4 K/uL (1.8-7.0); NEUT % 66.3 % (50.0-75.0); RBC 4.01 Mil/uL (4.40-5.90); RED CELL DISTRIBUTION WIDTH 15.1 % (11.5-14.5); WHITE BLOOD COUNT 6.7 K/uL (4.8-10.8)
[2017-07-07 09:08] LABS: ALBUMIN 3.9 g/dL (3.5-5.0); CALCIUM 8.3 mg/dl (8.6-10.4)
[2017-07-07] MEDS ORDERED: Sod Polystyrene Sulf 15 gm/60 ml Susp PO ONE (09:23)
[2017-07-07] MEDS: Saccharomyces Boulardi 250 mg Cap PO SCH ×2 (10:30→17:47)
--- NOTE | 2017-07-07 12:29 | PCM.PYCHPN ---
Psychiatric Progress Note - Psychiatric Progress Note Patient seen today, length of contact: 15 min Patient Chief Complaint: I am feeling little better.' Problems Identified/Issues Discussed: Patient seen and evaluated, chart reviewed and discussed with the nurse. As per the staff pt was concerned about his dialysis and about the snow storm that is coming in 2 days. The patient reports improvement in his mood and reports improvement in withdrawal symptoms. He still reports anxiety, headaches and sweating. As per the nurse patient is improving. He denies any suicidal ideation or homicidal ideation. Patient is taking medications and denies any side effects. Symptoms are improving but needs more time for stabilization. Supportive therapy and psychoeducation were given. Medication Change: Yes (Methadone taper) Medical Record Reviewed: Yes Mental Status Examination - Cognitive Function Orientation: Person, Place, Situation, Time Memory: Intact Attention: WNL Concentration: WNL Association: WNL Fund of Knowledge: Poor - Mood Mood: Neutral - Affect Affect: Constricted - Speech Speech: Soft - Formal Thought Process Formal Thought Process: No Impairment - Suicidal Ideation Suicidal Ideation: No - Homicidal Ideation Homicidal Ideation: No Goal/Treatment Plan - Goal/Treatment Plan Need for Continued Stay: Severe depression anxiety, Severe functional impairment Progress Toward Problem(s) and Goals/Treatment Plan: Opioid use d/o- severe Opioid withdrawal Methadone detox As needed medications Dialysis will be provided MWF Attend groups and activities Supportive therapy and psychoeducation [place] for abstinence CBT for relapse prevention Encourage MAT Refer to rehab or IOP Attend self-help groups as well Trazodone 50 mg po qhs - Smoking Cessation Smoking Cessation Initiated: No
[2017-07-07 12:42] VITALS: O2SAT 100
--- NOTE | 2017-07-07 13:40 | CP.PCM.PN ---
<Afsaneh Burdick DO - Last Filed: 07/07/17 14:43> Subjective - Date & Time of Evaluation Date of Evaluation: 07/07/17 Time of Evaluation: 13:38 - Subjective Subjective: PGY2 progress note for Dr. Wadsworth's service: Patient seen and examined. Patient states that arm feels less tender since starting clindamycin. Patient denies palpitations or chest discomfort. Patient counseled on importance of completing dialysis. Patient states he would like to go home tomorrow after dialysis so that he can be home before it starts to snow. Objective - Vital Signs/Intake and Output Vital Signs (last 24 hours): Temp Pulse Resp BP Pulse Ox 98.5 F 50 L 18 178/98 H 100 07/07/17 12:41 07/07/17 12:41 07/07/17 12:41 07/07/17 12:41 07/07/17 12:41 - Medications Medications: Current Medications Al Hydrox/Mg Hydrox/Simethicone (Maalox 30 Ml) 30 ml PO Q8H PRN PRN Reason: Indigestion / Heartburn Last Admin: 07/06/17 06:21 Dose: 30 ml Clindamycin HCl (Cleocin) 300 mg PO TID [facility] Last Admin: 07/07/17 09:21 Dose: 300 mg Clonidine HCl (Catapres) 0.1 mg PO Q8 PRN PRN Reason: COWS Score More or Equal to 5 Last Admin: 07/07/17 12:32 Dose: 0.1 mg Dicyclomine HCl (Bentyl) 10 mg PO Q6 PRN PRN Reason: stomach cramps Last Admin: 07/05/17 18:22 Dose: 10 mg Doxercalciferol (Hectorol) 1 mcg PO [facility] [place] [place] Epoetin Pasquale (Procrit) 4,000 unit IV [facility] [place] [place] Heparin Sodium (Porcine) (Heparin) 2,000 units IVP [facility] [place] [place] Last Admin: 07/05/17 15:06 Dose: 2,000 units Heparin Sodium (Porcine) (Heparin) 4,600 units IVP [facility] [place] [place] Last Admin: 07/05/17 15:07 Dose: 4,600 units Hydralazine HCl (Apresoline) 25 mg PO TID [facility] Last Admin: 07/07/17 13:26 Dose: 25 mg Hydroxyzine HCl (Atarax) 25 mg PO Q6 PRN PRN Reason: Anxiety Ibuprofen (Motrin Tab) 600 mg PO Q8 PRN PRN Reason: Pain, moderate (4-7) Last Admin: 07/06/17 19:56 Dose: 600 mg Loperamide HCl (Imodium) 2 mg PO Q8 PRN PRN Reason: Diarrhea Losartan Potassium (Cozaar) 50 mg PO QPM [facility] Last Admin: 07/06/17 17:09 Dose: 50 mg Methadone HCl (Methadone) 10 mg PO Q24H [facility] PRN Reason: Taper Stop: 07/10/17 09:59 Last Admin: 07/07/17 09:19 Dose: 10 mg Nicotine (Nicoderm Cq) 1 patch TD DAILY [facility] Last Admin: 07/07/17 09:19 Dose: 1 patch Ondansetron HCl (Zofran Tab) 4 mg PO Q8 PRN PRN Reason: Nausea/Vomiting Last Admin: 07/06/17 01:02 Dose: 4 mg Saccharomyces Boulardii (Florastor) 250 mg PO BID [facility] Last Admin: 07/07/17 10:30 Dose: 250 mg Trazodone HCl (Desyrel) 50 mg PO HS PRN PRN Reason: Insomnia Last Admin: 07/06/17 21:10 Dose: 50 mg Vitamin B Complex/Vit C/Folic Acid (Nephro-Enrike) 1 tab PO 0800 [facility] Last Admin: 07/07/17 08:12 Dose: 1 tab - Labs Labs: 07/07/17 08:27 07/07/17 08:27 - Constitutional Appears: No Acute Distress - Head Exam Head Exam: ATRAUMATIC, NORMOCEPHALIC - Eye Exam Eye Exam: EOMI - ENT Exam ENT Exam: Mucous Membranes Moist - Respiratory Exam Respiratory Exam: Clear to Ausculation Bilateral, NORMAL BREATHING PATTERN - Cardiovascular Exam Cardiovascular Exam: +S1, +S2 - GI/Abdominal Exam GI & Abdominal Exam: Soft, Normal Bowel Sounds. absent: Tenderness - Extremities Exam Additional comments: left forearm with area of induration in middle of volar aspect, no tenderness - Neurological Exam Neurological Exam: Alert, Awake - Skin Skin Exam: Warm Assessment and Plan - Assessment and Plan (Free Text) Assessment: (1) Cellulitis Assessment and Plan: upper extremity ultrasound: there is diffuse edema in the superficial soft tissues. There is a small fluid collection [id number]. Findings suggest cellulitis, no discrete abscess (see full report) continue clindamycin 300mg PO TID, will need total 14 days florastor 250mg PO BID, total 14 days Status: Acute (2) ESRD (end stage renal disease) on dialysis Assessment and Plan: His charter and tour bus driver does not come here. Dr. Lovelace consulted. continue his dialysis schedule. Procrit 4000 units MWF Nephro-Enrike Status: Chronic (3) Hyperkalemia Assessment and Plan: potassium 6.2 today patient given 30g kayexalate EKG ordered, pending result patient asymptomatic pharmacy is out of calcium gluconate (4) HTN (hypertension) Assessment and Plan: restarted his BP medications. Hydralazine 25mg TID Cozaar 50mg daily. Status: Chronic (5) Opioid use disorder, severe, dependence Assessment and Plan: Management per psychiatry team Status: Acute (6) Prophylactic measure Assessment and Plan: Immodium, clonidine, and Zofran as needed. Status: Acute <Suhas Wadsworth - Last Filed: 07/07/17 21:06> Objective - Vital Signs/Intake and Output Vital Signs (last 24 hours): Temp Pulse Resp BP Pulse Ox 98.7 F 50 L 18 177/100 H 100 07/07/17 20:39 07/07/17 20:39 07/07/17 20:39 07/07/17 20:39 07/07/17 20:39 - Medications Medications: Current Medications Al Hydrox/Mg Hydrox/Simethicone (Maalox 30 Ml) 30 ml PO Q8H PRN PRN Reason: Indigestion / Heartburn Last Admin: 07/06/17 06:21 Dose: 30 ml Clindamycin HCl (Cleocin) 300 mg PO TID [facility] Stop: 07/20/17 14:00 Last Admin: 07/07/17 17:09 Dose: 300 mg Clonidine HCl (Catapres) 0.1 mg PO Q8 PRN PRN Reason: COWS Score More or Equal to 5 Last Admin: 07/07/17 20:21 Dose: 0.1 mg Dicyclomine HCl (Bentyl) 10 mg PO Q6 PRN PRN Reason: stomach cramps Last Admin: 07/05/17 18:22 Dose: 10 mg Doxercalciferol (Hectorol) 1 mcg PO MWF [facility] Epoetin Pasquale (Procrit) 4,000 unit IV [facility] [place] [place] Heparin Sodium (Porcine) (Heparin) 2,000 units IVP [facility] [place] [place] Last Admin: 07/05/17 15:06 Dose: 2,000 units Heparin Sodium (Porcine) (Heparin) 4,600 units IVP [facility] [place] [place] Last Admin: 07/05/17 15:07 Dose: 4,600 units Hydralazine HCl (Apresoline) 25 mg PO TID [facility] Last Admin: 07/07/17 17:09 Dose: 25 mg Hydroxyzine HCl (Atarax) 25 mg PO Q6 PRN PRN Reason: Anxiety Last Admin: 07/07/17 20:21 Dose: 25 mg Ibuprofen (Motrin Tab) 600 mg PO Q8 PRN PRN Reason: Pain, moderate (4-7) Last Admin: 07/07/17 16:02 Dose: 600 mg Loperamide HCl (Imodium) 2 mg PO Q8 PRN PRN Reason: Diarrhea Losartan Potassium (Cozaar) 50 mg PO QPM [facility] Last Admin: 07/07/17 18:05 Dose: 50 mg Methadone HCl (Methadone) 10 mg PO Q24H [facility] PRN Reason: Taper Stop: 07/10/17 09:59 Last Admin: 07/07/17 09:19 Dose: 10 mg Nicotine (Nicoderm Cq) 1 patch TD DAILY [facility] Last Admin: 07/07/17 09:19 Dose: 1 patch Ondansetron HCl (Zofran Tab) 4 mg PO Q8 PRN PRN Reason: Nausea/Vomiting Last Admin: 07/06/17 01:02 Dose: 4 mg Saccharomyces Boulardii (Florastor) 250 mg PO BID [facility] Stop: 08/21/17 14:00 Last Admin: 07/07/17 17:47 Dose: 250 mg Trazodone HCl (Desyrel) 50 mg PO HS PRN PRN Reason: Insomnia Last Admin: 07/06/17 21:10 Dose: 50 mg Vitamin B Complex/Vit C/Folic Acid (Nephro-Enrike) 1 tab PO 0800 [facility] Last Admin: 07/07/17 08:12 Dose: 1 tab - Labs Labs: 07/07/17 08:27 07/07/17 17:19 Attending/Attestation - Attestation I have personally seen and examined this patient.: Yes I have fully participated in the care of the patient.: Yes I have reviewed all pertinent clinical information, including history, physical exam and plan: Yes Notes (Text): 07/07/17 21:02 Patient was seen and examined at 4:30 PM. Exam, assessment and plan were gone over with the resident. Medicine Team please do the following on 07/08/17: Confirm with radiology concerning findings on U/S of Left Arm that there is NO abscess. The body of the report states that there is a capsule which would indicate an abscess. Confirm with radiology as this may have been a typo during dictation. I have reached out the Radiologist sr technical sales consultant on Saturday07/06/17 but never received a call back. Patient will need to be on Clindamycin for a total of 14 days. Patient will need to be on Florastor while on Clindaymycin and for 30 days after last dose of Clindamycin. Patient should be instructed again (I have already explained this to him very clearly) at the time that Medcine Team signs off. Suhas Wadsworth D.O.
--- NOTE | 2017-07-07 14:29 | CARD ---
APPROVED REPORT EKG Measurement Heart [id number] <Conclusion> Sinus bradycardia with 1st degree AV block Otherwise normal ECG
[2017-07-07 17:42] LABS: CALCIUM 8.1 mg/dl (8.6-10.4)
--- NOTE | 2017-07-07 21:06 | CP.PCM.PCO ---
Physician Communication Note - Physician Communication Note Physician Communication Note: See above
[2017-07-08] MEDS: Multivitamin Vitamin B Complex (Nephro-Vite) Tab PO SCH (08:12)
[2017-07-08] MEDS ORDERED: Saccharomyces Boulardi 250 mg Cap PO SCH (08:15)
--- NOTE | 2017-07-08 08:21 | CP.PCM.PN ---
<Monica Noland - Last Filed: 07/08/17 17:40> Subjective - Date & Time of Evaluation Date of Evaluation: 07/08/17 Time of Evaluation: 08:21 - Subjective Subjective: Medicine Progress Note for Dr. Tariq's Service Patient was seen and examined at bedside in no acute distress. Patient reports feeling well and wanting to go home. Patient says his arm does not hurt or feel warm; he says it feels better than previously. Patient denies having fevers, chills, chest pain, abdominal pain, nausea, vomiting, dizziness, and headaches. Objective - Vital Signs/Intake and Output Vital Signs (last 24 hours): Temp Pulse Resp BP Pulse Ox 97.7 F 56 L 18 171/88 H 100 07/08/17 06:29 07/08/17 06:29 07/08/17 06:29 07/08/17 06:29 07/08/17 06:29 - Medications Medications: Current Medications Al Hydrox/Mg Hydrox/Simethicone (Maalox 30 Ml) 30 ml PO Q8H PRN PRN Reason: Indigestion / Heartburn Last Admin: 07/06/17 06:21 Dose: 30 ml Clindamycin HCl (Cleocin) 300 mg PO TID [facility] Stop: 07/20/17 14:00 Last Admin: 07/07/17 17:09 Dose: 300 mg Clonidine HCl (Catapres) 0.1 mg PO Q8 PRN PRN Reason: COWS Score More or Equal to 5 Last Admin: 07/07/17 20:21 Dose: 0.1 mg Dicyclomine HCl (Bentyl) 10 mg PO Q6 PRN PRN Reason: stomach cramps Last Admin: 07/05/17 18:22 Dose: 10 mg Doxercalciferol (Hectorol) 1 mcg PO [facility] [place] Last Admin: 07/08/17 08:14 Dose: 1 mcg Epoetin Pasquale (Procrit) 4,000 unit IV [facility] [place] Heparin Sodium (Porcine) (Heparin) 2,000 units IVP [facility] [place] Last Admin: 07/05/17 15:06 Dose: 2,000 units Heparin Sodium (Porcine) (Heparin) 4,600 units IVP [facility] [place] Last Admin: 07/05/17 15:07 Dose: 4,600 units Hydralazine HCl (Apresoline) 25 mg PO TID [facility] Last Admin: 07/07/17 17:09 Dose: 25 mg Hydroxyzine HCl (Atarax) 25 mg PO Q6 PRN PRN Reason: Anxiety Last Admin: 07/07/17 20:21 Dose: 25 mg Ibuprofen (Motrin Tab) 600 mg PO Q8 PRN PRN Reason: Pain, moderate (4-7) Last Admin: 07/07/17 16:02 Dose: 600 mg Loperamide HCl (Imodium) 2 mg PO Q8 PRN PRN Reason: Diarrhea Losartan Potassium (Cozaar) 50 mg PO QPM [facility] Last Admin: 07/07/17 18:05 Dose: 50 mg Methadone HCl (Methadone) 10 mg PO Q24H [facility] PRN Reason: Taper Stop: 07/10/17 09:59 Last Admin: 07/07/17 09:19 Dose: 10 mg Nicotine (Nicoderm Cq) 1 patch TD DAILY [facility] Last Admin: 07/07/17 09:19 Dose: 1 patch Ondansetron HCl (Zofran Tab) 4 mg PO Q8 PRN PRN Reason: Nausea/Vomiting Last Admin: 07/06/17 01:02 Dose: 4 mg Saccharomyces Boulardii (Florastor) 250 mg PO BID [facility] Last Admin: 07/08/17 08:15 Dose: 250 mg Trazodone HCl (Desyrel) 50 mg PO HS PRN PRN Reason: Insomnia Last Admin: 07/07/17 21:15 Dose: 50 mg Vitamin B Complex/Vit C/Folic Acid (Nephro-Enrike) 1 tab PO 0800 [facility] Last Admin: 07/08/17 08:12 Dose: 1 tab - Labs Labs: 07/07/17 08:27 07/07/17 17:19 - Constitutional Appears: No Acute Distress - Head Exam Head Exam: ATRAUMATIC, NORMAL INSPECTION - Eye Exam Eye Exam: EOMI - ENT Exam ENT Exam: Mucous Membranes Moist - Respiratory Exam Respiratory Exam: Clear to Ausculation Bilateral, NORMAL BREATHING PATTERN. absent: Rales, Rhonchi, Wheezes, Respiratory Distress - Cardiovascular Exam Cardiovascular Exam: REGULAR RHYTHM, +S1, +S2 - GI/Abdominal Exam GI & Abdominal Exam: Soft, Normal Bowel Sounds. absent: Distended, Firm, Tenderness - Extremities Exam Extremities Exam: Normal Inspection. absent: Pedal Edema - Neurological Exam Neurological Exam: Alert, Awake, Oriented x3 - Psychiatric Exam Psychiatric exam: Normal Affect, Normal Mood - Skin Skin Exam: Dry, Intact Additional comments: Left UE: slightly erythematous, raised lesion on left forearm; not tender to palpation; no discharge noted. Assessment and Plan - Assessment and Plan (Free Text) Plan: Patient is medically stable. Patient must continue Clindamycin 300mg PO TID and Florastor 250mg PO BID for a total of 14 days. Patient is scheduled for outpatient dialysis at [facility] today, 07/08/17, and encouraged to continue dialysis schedule. Patient should follow up with their PMD and Bulk Delivery Driver within one week of discharge. (1) Cellulitis Assessment and Plan: upper extremity ultrasound: there is diffuse edema in the superficial soft tissues. There is a small fluid collection [id number]. Findings suggest cellulitis, no discrete abscess (see full report) continue clindamycin 300mg PO TID, will need total 14 days florastor 250mg PO BID, total 14 days Patient encouraged to follow up with their PMD within 1 week of discharge. Status: Acute (2) ESRD (end stage renal disease) on dialysis Assessment and Plan: His home office claims examiner does not come here. Dr. Lovelace consulted. continue his dialysis schedule. Patient scheduled for outpatient dialysis today, 07/08/17, at [facility] (12pm appointment); Encouraged to f/u with outpatient home office claims examiner within 1 week of discharge. Status: Chronic (3) Hyperkalemia Assessment and Plan: Improved- 5.1 on 07/08/17 potassium 6.2 on 07/07/17 patient given 30g kayexalate EKG ordered-sinus bradycardiac at 47bmp with 1st degree AV block patient asymptomatic pharmacy is out of calcium gluconate (4) HTN (hypertension) Assessment and Plan: restarted his BP medications. Hydralazine 25mg TID Cozaar 50mg daily. Status: Chronic (5) Opioid use disorder, severe, dependence Assessment and Plan: Management per psychiatry team Status: Acute (6) Prophylactic measure Assessment and Plan: Immodium, clonidine, and Zofran as needed. Status: Acute <Stefanie Tariq V - Last Filed: 07/08/17 21:24> Objective - Vital Signs/Intake and Output Vital Signs (last 24 hours): Temp Pulse Resp BP Pulse Ox 98.2 F 45 L 20 173/93 H 100 07/08/17 09:06 07/08/17 09:06 07/08/17 09:06 07/08/17 09:06 07/08/17 09:06 - Labs Labs: 07/07/17 08:27 07/07/17 17:19 Attending/Attestation - Attestation I have personally seen and examined this patient.: Yes I have fully participated in the care of the patient.: Yes I have reviewed all pertinent clinical information, including history, physical exam and plan: Yes Notes (Text): Patient seen, examined and case discussed with day-time resident. Patient had left lower extremity pain. No erythema observed. Small mild fluctuant. Resident spoke with radiologist, no discrete abscess. I spoke with patient myself and patient is aware if left upper extremity lump does not improve following completion of completion of PO antibiotics to follow-up with primary care doctor for possible I&D in the future. Patient is scheduled for dialysis for later this afternoon 12:30PM/1PM. Per psychiatry, patient is discharge from their prespective. Medications per medicine on discharge: 1) Clindamycin 300mg PO TID (36 tabs/0 refills) 2) Florastor 250mg PO BID (10 tabs/0 refills) 3) Hydralazine 25mg PO TID (90 tabs/0 refills) 4) Cozaar 50mg PO daily (30 tabs/0 refills) 5) Aspirin 81mg PO daily (30 tabs/0 refills) Assessment/Plan 1) Cellulitis Assessment and Plan: * upper extremity ultrasound: there is diffuse edema in the superficial soft tissues. There is a small fluid collection [id number]. Findings suggest cellulitis, no discrete abscess (see full report). Resident has spoken with radiologist and confirmed impression upon discharge * continue clindamycin 300mg PO TID, will need total 14 days (script provided upon discharge) * florastor 250mg PO BID (script provided upon discharge). If prescription is too costly for the patient, also advised probiotic yogurt to the patient. * Patient encouraged to follow up with their PMD within 1 week of discharge. Status: Acute (2) ESRD (end stage renal disease) on dialysis Assessment and Plan: * His home office claims examiner does not come here. Dr. Lovelace consulted. continue his dialysis schedule. * Patient scheduled for outpatient dialysis today, 07/08/17, at [facility] (12pm appointment); patient go his dialysis session following discharge from the hospital stoday * Encouraged to f/u with outpatient home office claims examiner within 1 week of discharge. Status: Chronic (3) Hyperkalemia Assessment and Plan: * Improved- 5.1 on 07/08/17 * potassium 6.2 on 07/07/17 * During hospitalization, patient given 30g kayexalateX1. * EKG ordered-sinus bradycardiac at 47bmp with 1st degree AV block * patient asymptomatic (4) HTN (hypertension) Assessment and Plan: * restarted his BP medications. * Hydralazine 25mg TID * Cozaar 50mg daily * Provided one month supply upon discharge Status: Chronic (5) Opioid use disorder, severe, dependence Assessment and Plan: * Management per psychiatry team * per psych, discharge from detox unit. Status: Acute
--- NOTE | 2017-07-08 08:46 | PCM.PYCHDC ---
Mental Status Examination - Mental Status Examination Orientation: Person, Place, Situation, Time Memory: Intact Mood: Anxious Affect: Constricted Speech: Appropriate Attention: WNL Concentration: Poor Association: WNL Fund of Knowledge: WNL Formal Thought Process: No Impairment Suicidal Ideation: No Current Homicidal Ideation?: No Discharge Summary - Discharge Note Reason for Hospitalization: Heroin detox Psychiatric History (includes Medical, Family, Personal Hx): Hx of depression Laboratory Data: Abnormal Lab Results 07/07/17 07/07/17 07/07/17 08:27 08:27 17:19 WBC 6.7 RBC 4.01 L Hgb 11.8 L Hct 35.2 MCV 87.8 MCH 29.5 MCHC 33.6 RDW 15.1 H Plt Count 291 MPV 8.5 Neut % (Auto) 66.3 Lymph % (Auto) 22.9 [place] % (Auto) 7.1 Eos % (Auto) 2.7 Baso % (Auto) 1.0 Neut # 4.4 Lymph # 1.5 [place] # 0.5 Eos # 0.2 Baso # 0.1 Sodium 130 L 130 L Potassium 6.2 H* 5.1 Chloride 95 L 94 L Carbon Dioxide 29 28 Anion Gap 12 14 BUN 42 H 47 H Creatinine 7.2 H 7.3 H Est GFR ( Amer) 10 10 Est GFR (Non-Af Amer) 8 8 Random Glucose 95 113 H Calcium 8.3 L 8.1 L Total Bilirubin 0.5 AST 26 ALT 26 Alkaline Phosphatase 67 Total Protein 7.7 Albumin 3.9 Globulin 3.8 Albumin/Globulin Ratio 1.0 Consultations:: List each consultation separately and include: 1. Reason for request. 2. Findings. 3. Follow-up Consultations: Nephro consulted for his ESRD and internal medicine for mild cellulitis in his other arm. Help appreciated. Summary of Hospital Course include:: 1. Description of specific treatment plan utilized for patients during their course of treatmen. 2. Summarize the time- course for resolution of acute symptoms and/or regressed behaviors. 3. Describe issues identified and worked on during hospitalization. 4. Describe medication utilized. 5. Describe medical problems identified and treated. 6. Reassessment of suicide risk Summary of Hospital Course: He is seen today, case discussed and chart reviewed. On admission: Patient is a 47 year old AA male who was admitted for detox from opioids. He is engaged and lives with his fiance. He has 3 children ages 24,20,12. He is currently unemployed and on disability. He states he uses 30 bags of heroin IV daily. Last time used was yesterday. He currently states he is feeling withdrawal symptoms. He states he is very nauseous and weak. He also reports daily use of marijuana. He denies alcohol use , pills, or cocaine. He has never been to detox or rehab in the past. He was incarcerated for 3 years , which was his longest time of sobriety, and began using shortly after his release. He has no legal issues at this time. His plan after detox is to start a rehab program. He wishes to go inpatient but due to his dialysis needs the treatment team suggested an outpatient may be best for him. Past psych hx: Denies Family psych hx: Denies PMH: HTN, Kidney failure: subclavian HD catheter, dialysis MWF Hospital course: The pt was admitted and started on treatment with psychotherapy, support, psychoeducation and medications. SD and CBT used. The pt attended groups and activities, as well as milieu therapy. All the risks and benefits of medications are discussed and the patient understood and agreed. The pt improved with the treatments provided. After care discussed with the patient. He was in a hidalgo to leave. Normally he was supposed to leave tomorrow after one more dialysis here, but he arranged [employer] himself and he called and made his GF call the center he goes to in [facility], and arranged dialysis for today. He claimed he didn;t like the dialysis ctr here, blamed their nurses etc. He couldn't wait for an appt for an outpatient center, ie [facility], but our counselor gave him referral resources. - Final Diagnosis (DSM 5) Condition upon Discharge: STABLE DSM 5: Opioid use d/o- severe Opioid withdrawal Disposition: HOME/ ROUTINE Follow-up Treatment Plan: Continue below medications after discharge. Follow after care plan as discussed. Use relapse prevention skills Return to ER or call 911 if suicidal, homicidal or symptoms relapse. Stay away from stress, alcohol and drugs. See primary doctor regularly and get labs. Prescriptions/Medication Reconciliation: RX: Aspirin [Ecotrin] 81 mg PO DAILY #30 tabec RX: Clindamycin [Cleocin] 300 mg PO TID #30 cap RX: hydrALAZINE [Apresoline] 25 mg PO TID #90 tab RX: Losartan [Cozaar] 50 mg PO QPM #30 tab Saccharomyces Boulardi [Florastor] 250 mg PO BID #20 cap RX: traZODone [Desyrel] 50 mg PO HS PRN #30 tab PRN Reason: Insomnia - Smoking Cessation Smoking Cessation Medication prescribed: No - Antipsychotic Medications Pt discharged on 2 or more routine antipsychotic medications: No
[2017-07-08] MEDS ORDERED: Epoetin Alfa Dialysis 40000 UNIT/ml Inj IV SCH (09:00)
[2017-07-08 09:09] VITALS: BP 173/93; PULSE 45; RESP 20; TEMP 98.2
--- NOTE | 2017-07-08 09:50 | VASCLAB ---
PROCEDURE: Left Upper Extremity Venous Duplex Exam HISTORY: IV drug use, thrombosis of the vein. PRIORS: None. TECHNIQUE: Left upper extremity, internal jugular, subclavian, axillary, brachial, ulnar, radial, basilic and upper cephalic veins were evaluated. Flow was assessed with color Doppler, compressibility, assessment of phasic flow and augmentation response. Report prepared by ESTEFANY Gaffney FINDINGS: LEFT: 1. Internal Jugular: 1.1. Compressibility - Fully compressible: Thrombus - None : Flow - Phasic: Augmentation -Normal: Reflux - None. 2. Subclavian: 2.1. Compressibility - Fully compressible: Thrombus - None : Flow - Phasic: Augmentation -Normal: Reflux - None. 3. Axillary: 3.1. Compressibility - Fully compressible: Thrombus - None : Flow - Phasic: Augmentation -Normal: Reflux - None. 4. Brachial: 4.1. Compressibility - Fully compressible: Thrombus - None: Flow - Phasic: Augmentation -Normal: Reflux - None. 5. Ulnar: 5.1. Compressibility - Fully compressible: Thrombus - None: Flow - Phasic: Augmentation -Normal: Reflux - None. 6. Radial: 6.1. Compressibility - Fully compressible: Thrombus - None: Flow - Phasic: Augmentation - Normal: Reflux - None. 7. Cephalic: 7.1. Compressibility - Fully compressible: Thrombus - None: Flow - Phasic: Augmentation -Normal: Reflux - None. 8. Basilic: 8.1. Compressibility - Fully compressible: Thrombus - None: Flow - Phasic: Augmentation -Normal: Reflux - None. OTHER FINDINGS: None. IMPRESSION: Left: No evidence of vein thrombosis of the left upper extremity with excellent venous flow. Normal valve function noted of the left side. Normal venous flow noted in the right internal jugular vein.
== END 2017-07-08 10:30 | disposition home or self-care (01) | DRG 744 ==
LOC: C.ER 14:29 → C.7D 17:02
PROVIDERS: ADMIT Psychiatry & Neurology Psychiatry; ATTEND Psychiatry & Neurology Psychiatry
PROC: HZ2ZZZZ Detoxification Services for Substance Abuse Treatment (ICD-10-PCS; principal; 2017-07-05)
PROC: HZ52ZZZ Individual Psychotherapy for Substance Abuse Treatment, Cognitive-Behavioral (ICD-10-PCS; 2017-07-05)
PROC: HZ42ZZZ Group Counseling for Substance Abuse Treatment, Cognitive-Behavioral (ICD-10-PCS; 2017-07-05)
PROC: HZ59ZZZ Individual Psychotherapy for Substance Abuse Treatment, Supportive (ICD-10-PCS; 2017-07-05)
PROC: HZ56ZZZ Individual Psychotherapy for Substance Abuse Treatment, Psychoeducation (ICD-10-PCS; 2017-07-05)
PROC: HZ46ZZZ Group Counseling for Substance Abuse Treatment, Psychoeducation (ICD-10-PCS; 2017-07-05)
PROC: 5A1D70Z Performance of Urinary Filtration, Intermittent, Less than 6 Hours Per Day (ICD-10-PCS; 2017-07-05)
DX: F11.23 Opioid dependence with withdrawal (principal); I12.0 Hypertensive chronic kidney disease with stage 5 chronic kidney disease or end stage renal disease; E83.39 Other disorders of phosphorus metabolism; N18.6 End stage renal disease; I80.8 Phlebitis and thrombophlebitis of other sites; L03.119 Cellulitis of unspecified part of limb; E87.5 Hyperkalemia; Z99.2 Dependence on renal dialysis; F17.210 Nicotine dependence, cigarettes, uncomplicated; N25.81 Secondary hyperparathyroidism of renal origin; D64.9 Anemia, unspecified

== ENCOUNTER 2018-09-26 17:57 | Inpatient (IN) | payer MEDICAID ==
--- NOTE | 2018-09-26 18:27 | C.PDOC ---
History Of Present Illness 48 year old male presents to the ED requesting heroin detox. 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 Patient states his last hemodialysis was 4/4 per routine. Patient denies other associated symptoms. REQUESTING HEROIN DETOX. 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 LAST HD 4/4 PER ROUTINE. DENIES OTHER ASSOC SX hx of ESRD on hemodialysis (MWF) via permacath, last dialysis wed, chronic anemia, hyperphosphatemia, secondary hyperparathyroidism, hypertension, active drug abuse EXAM NAD NARD PSYCH CALM COOPERATIVE MILD INTOX NO ACUTE PSYCHOSIS, SI/SA REMAINDER NEG Time Seen by Provider: 09/26/18 18:27 Chief Complaint (Nursing): Substance Abuse History Per: Patient History/Exam Limitations: no limitations Onset/Duration Of Symptoms: Hrs Current Symptoms Are (Timing): Still Present Modifying Factor(s): Other (heroin ) Associated Symptoms: denies: Suicidal Thoughts, Suicidal Plan Involuntary Hold By: None Recent travel outside of the [place]: No Additional History Per: Patient Past Medical History Reviewed: Historical Data, Nursing Documentation, Vital Signs Vital Signs: Last Vital Signs Temp 97.9 F 09/26/18 18:08 Pulse 75 09/26/18 18:08 Resp 17 09/26/18 18:08 BP 173/93 H 09/26/18 18:08 Pulse Ox 100 09/26/18 18:08 - Medical History PMH: HTN, End Stage Renal Disease, Chronic Kidney Disease Denies: Diabetes, Hepatitis, HIV, Seizures, Sexually Transmitted Disease Surgical History: No Surg Hx - [facility] Procedures (07/04/17) DETOXIFICATION SERVICES FOR SUBSTANCE ABUSE TREATMENT (07/04/17) GROUP FLOTATION OPERATOR FOR SUBSTANCE ABUSE TREATMENT, PSYCHOEDUCATION (07/04/17) GROUP FLOTATION OPERATOR FOR SUBSTANCE ABUSE, COGNITIVE BEHAVIORAL (07/04/17) INDIV PSYCHOTHERAPY FOR SUBSTANCE ABUSE TREATMENT, SUPPORT (07/04/17) INDIV PSYCHOTHERAPY FOR SUBSTANCE ABUSE, COGNITIV BEHAVIORAL (07/04/17) INDIV PSYCHOTHERAPY FOR SUBSTANCE ABUSE, PSYCHOEDUCATION (07/04/17) Family History: States: Unknown Family Hx - Social History Hx Alcohol Use: No Hx Substance Use: Yes - Immunization History Hx Tetanus Toxoid Vaccination: Yes Hx Influenza Vaccination: Yes Hx Pneumococcal Vaccination: Yes Review Of Systems Constitutional: Negative for: Fever, Chills Psych: Positive for: Other (heroin detox ) Physical Exam - Physical Exam Appears: Non-toxic, No Acute Distress Skin: Normal Color, Warm, Dry Head: Atraumatic, Normacephalic Eye(s): bilateral: Normal Inspection Oral Mucosa: Moist Neck: Supple Chest: Symmetrical, No Deformity, No Tenderness Cardiovascular: Rhythm Regular, No Murmur Respiratory: Normal Breath Sounds, No Rales, No Rhonchi, No Wheezing Extremity: Normal ROM, Capillary Refill (less than 2 seconds ) Neurological/Psych: Other (CALM COOPERATIVE MILD INTOX NO ACUTE PSYCHOSIS, SI/SA) ED Course And Treatment - Laboratory Results Result Diagrams: 09/26/18 18:58 09/26/18 18:58 ECG: Interpreted By Me ECG Rhythm: Sinus Rhythm ECG Interpretation: Normal Rate From EC O2 Sat by Pulse Oximetry: 100 (on RA ) Pulse Ox Interpretation: Normal - Radiology CXR: Interpreted by Me CXR Interpretation: Yes: No Acute Disease Progress Note: Bloodwork, UA, CXR, EKG ordered and reviewed. Progress - Re-Evaluation Re-evaluation Note: 09/26/18 19:09 D/W CRISIS JONATHON WILL EVAL IN ER 09/26/18 19:45 MED CLEAR FOR DETOX. NO PMD OR NEPHRO ON STAFF @ . NO SIGNS, SYMPTOMS OR FINDINGS FOR EMERGENCY DIALYSIS. S/P ROUTINE HD 09/25. RECOMMEND MED CONSULT FOR ESRD MGMT 09/26/18 21:[address] ROXANNA COBIAN DEVELOPMENT ASSISTANT PENDING CRISIS DISPO 09/26/18 21:59 d/w dr Barraza will consult - Data Reviewed Data Reviewed: Lab, Old records Disposition Counseled Patient/Family Regarding: Studies Performed, Diagnosis - Disposition Disposition: HOSPITALIZED Disposition Time: 21:34 Condition: STABLE Forms: [employer] (Fijian) - Clinical Impression Clinical Impression: Opioid use disorder, severe, dependence, ESRD (end stage renal disease) on dialysis - Scribe Statement The provider has reviewed the documentation as recorded by the Scribe (Mary Beth Wadsworth) Provider Attestation: All medical record entries made by the Scribe were at my direction and personally dictated by me. I have reviewed the chart and agree that the record accurately reflects my personal performance of the history, physical exam, medical decision making, and the department course for this patient. I have also personally directed, reviewed, and agree with the discharge instructions and disposition.
[2018-09-26 19:02] LABS: BASO # 0.1 K/uL (0.0-0.2); EOS # 0.4 K/uL (0.0-0.7); EOS % 5.2 % (0.0-4.0); HEMOGLOBIN 12.2 g/dL (12.0-18.0); LYMPH # 2.3 K/uL (1.0-4.3); LYMPH % 28.7 % (20.0-40.0); MEAN CELL VOLUME 84.9 fL (80.0-94.0); MEAN CORPUSCULAR HEMOGLOBIN 27.4 pg (27.0-31.0); MEAN CORPUSCULAR HGB CONC 32.2 g/dL (33.0-37.0); MEAN PLATELET VOLUME 7.9 fL (7.2-11.7); MONO # 0.7 K/uL (0.0-0.8); MONO % 9.2 % (0.0-10.0); NEUT # 4.5 K/uL (1.8-7.0); NEUT % 55.9 % (50.0-75.0); NRBC % 0.1 % (0.0-2.0); RBC 4.46 Mil/uL (4.40-5.90); RED CELL DISTRIBUTION WIDTH 19.1 % (11.5-14.5)
[2018-09-26 19:16] LABS: SQUAMOUS EPITHIAL < 1 /hpf (0-5); URINE BACTERIA RARE (<OCC); URINE BILIRUBIN NEGATIVE (NEGATIVE); URINE BLOOD NEGATIVE (NEGATIVE); URINE CLARITY Hazy (Clear); URINE COLOR Yellow (YELLOW); URINE GLUCOSE (UA) 1+ mg/dL (Normal); URINE LEUKOCYTE ESTERASE NEG Leu/uL (Negative); URINE PROTEIN 3+ mg/dL (NEGATIVE); URINE UROBILINOGEN NORMAL mg/dL (0.2-1.0)
[2018-09-26 19:28] LABS: ALB/GLOB RATIO 1.1 (1.0-2.1); ALBUMIN 4.3 g/dL (3.5-5.0); ALT/SGPT 14 U/L (21-72); AST/SGOT 46 U/L (17-59); BLOOD UREA NITROGEN 29 mg/dL (9-20); CALCIUM 8.6 mg/dl (8.6-10.4); GFR NON-AFRICAN AMERICAN 6
[2018-09-26 19:50] LABS: BARBITURATES, UR NEGATIVE (NEGATIVE); BENZODIAZEPINES, UR NEGATIVE (NEGATIVE); PHENCYCLIDINE, UR NEGATIVE (NEGATIVE)
[2018-09-26 19:51] LABS: OPIATES, UR POSITIVE (NEGATIVE)
--- NOTE | 2018-09-27 01:30 | PCM.BM ---
Treatment Plan Problems - Problems identified on initial assessmt defensive coping Date Initiated: 09/27/18 Time Initiated: :29 Assessment reference: NA Status: Active Treatment assets and liabiliti Patient Assests: cooperative, ADL independent, negotiates basic needs Patient Liabilities: substance abuse, medical problems - Milieu Protocol Maintain good personal hygiene: daily Encourage regular showers, daily Remind patient to perform daily oral care, daily Assist patient to perform ADL's Maintain personal safety: every shift Educate patient to report safety concerns to staff, every shift Monitor environment for contraband/sharps Medication safety: Monitor for expected outcome, potential side effects: every shift, Assess barriers to learning: every shift, Assess readiness for medication education: every shift
[2018-09-27] MEDS: Multivitamin Vitamin B Complex (Nephro-Vite) Tab PO SCH (08:55)
--- NOTE | 2018-09-27 10:26 | CP.PCM.CON ---
History of Present Illness - History of Present Illness History of Present Illness: History Of Present Illness 48 year old male presents to the ED requesting heroin detox. 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 Patient states his last hemodialysis was 4/4 per routine. Patient denies other associated symptoms. REQUESTING HEROIN DETOX. 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 LAST HD 4/4 PER ROUTINE. DENIES OTHER SOC SX hx of ESRD on hemodialysis (MWF) via permacath, last dialysis wed, chronic anemia, hyperphosphatemia, secondary hyperparathyroidism, hypertension, active drug abuse PSH- AV fistula social hx- + heroine use actively, +smoking, denies ETOH FH- neg for CKD Review of Systems - Constitutional Constitutional: Night Sweats, Weakness - EENT Eyes: absent: As Per HPI, Blind Spots, Blurred Vision, Change in Vision, Decreased Night Vision, Diplopia, Discharge, Dry Eye, Exophthalmos, Floaters, Irritation, Itchy Eyes, Loss of Peripheral Vision, Pain, Photophobia, Requires Corrective Lenses, Sees Flashes, Spots in Vision, Tunnel Vision, Other Visual Disturbances, Loss of Vision, Other Ears: absent: As Per HPI, Decreased Hearing, Ear Discharge, Ear Pain, Tinnitus, Abnormal Hearing, Disequilibrium, Dizziness, Other Nose/Mouth/Throat: absent: As Per HPI, Epistaxis, Nasal Congestion, Nasal Discharge, Nasal Obstruction, Nasal Trauma, Nose Pain, Post Nasal Drip, Sinus Pain, Sinus Pressure, Bleeding Gums, Change in Voice, Dental Pain, Dry Mouth, Dysphagia, Halitosis, Hoarsness, Lip Swelling, Mouth Lesions, Mouth Pain, Odynophagia, Sore Throat, Throat Swelling, Tongue Swelling, Facial Pain, Neck Pain, Neck Mass, Other - Cardiovascular Cardiovascular: Palpitations - Respiratory Respiratory: absent: As Per HPI, Cough, Dyspnea, Hemoptysis, Dyspnea on Exertion, Wheezing, Snoring, Stridor, Pain on Inspiration, Chest Congestion, Excessive Mucous Production, Change in Mucous Color, Pain with Coughing, Other - Gastrointestinal Gastrointestinal: absent: As Per HPI, Abdominal Pain, Belching, Bloating, Change in Bowel Habits, Change in Stool Character, Coffee Ground Emesis, Constipation, Cramping, Diarrhea, Dyspepsia, Dysphagia, Early Satiety, Excessive Flatus, Fecal Incontinence, Heartburn, Hematemesis, Hematochezia, Loose Stools, Melena, Nausea, Odynophagia, Temesmus, Vomiting, Other - Genitourinary Genitourinary: As Per HPI - Musculoskeletal Musculoskeletal: Muscle Weakness, Myalgias - Neurological Neurological: absent: As Per HPI, Abnormal Gait, Abnormal Hearing, Abnormal Movements, Abnormal Speech, Behavioral Changes, Burning Sensations, Confusion, Convulsions, Disequilibrium, Dizziness, Numbness, Focal Weakness, Frequent Falls, Headaches, Lack of Coordination, Loss of Vision, Memory Loss, Paresthesias, Radicular Pain, Restless Legs, Sensory Deficit, Syncope, Tingling, Tremor, Vertigo, Weakness, Other Visual Disturbances, Other Past Patient History - Past Medical History & Family History Past Medical History?: Yes Past Family History: Reviewed and not pertinent - Past Social History Smoking Status: Heavy Smoker > 10 Cigarettes Daily Chewing Tobacco Use: No Cigar Use: No Alcohol: Occasional Drugs: Opiates - CARDIAC Hx Hypertension: Yes - PULMONARY Hx Tuberculosis: No - NEUROLOGICAL Hx Seizures: No - RENAL Hx Chronic Kidney Disease: Yes Hx Dialysis: Yes - HEMATOLOGICAL/ONCOLOGICAL Hx Human Immunodeficiency Virus (HIV): No - INTEGUMENTARY Hx Dermatological Problems: No - MUSCULOSKELETAL/RHEUMATOLOGICAL Hx Falls: No - GASTROINTESTINAL Hx Gastrointestinal Disorders: No - GENITOURINARY/GYNECOLOGICAL Hx Sexually Transmitted Disorders: No - PSYCHIATRIC Hx Substance Use: Yes - SURGICAL HISTORY Hx Surgeries: Yes Hx Vascular Access Device: Yes (LEFT LOWER ARM AV FISTULA) - ANESTHESIA Hx Anesthesia: Yes Hx Anesthesia Reactions: No Hx Malignant Hyperthermia: No Meds Allergies/Adverse Reactions: Allergies Allergy/AdvReac Type Severity Reaction Status Date / Time No Known Allergies Allergy Verified 09/26/18 18:12 - Medications Medications: Current Medications Aspirin (Ecotrin) 81 mg PO DAILY SUJEY Clonidine HCl (Catapres) 0.1 mg PO Q6 PRN PRN Reason: s/sx of withdrawal cows=5 Last Admin: 09/27/18 02:25 Dose: 0.1 mg Hydralazine HCl (Apresoline) 25 mg PO TID SUJEY Hydroxyzine HCl (Atarax) 25 mg PO Q6 PRN PRN Reason: Anxiety Ibuprofen (Motrin Tab) 600 mg PO Q6 PRN PRN Reason: Pain, moderate (4-7) Losartan Potassium (Cozaar) 50 mg PO QPM SUJE[facility] Trazodone HCl (Desyrel) 50 mg PO HS PRN PRN Reason: Insomnia Trazodone HCl (Desyrel) 50 mg PO HS PRN PRN Reason: Insomnia Vitamin B Complex/Vit C/Folic Acid (Nephro-Enrike) 1 tab PO 0800 SUJEY Physical Exam - Constitutional Appears: No Acute Distress, Chronically Ill - Head Exam Head Exam: ATRAUMATIC, NORMAL INSPECTION - Eye Exam Eye Exam: EOMI, Normal appearance - Neck Exam Neck exam: Positive for: Normal Inspection. Negative for: Tenderness - Respiratory Exam Respiratory Exam: Clear to Auscultation Bilateral, NORMAL BREATHING PATTERN - Cardiovascular Exam Cardiovascular Exam: REGULAR RHYTHM, +S1 - GI/Abdominal Exam GI & Abdominal Exam: Soft. absent: Tenderness - Extremities Exam Extremities exam: Positive for: pedal edema. Negative for: tenderness - Neurological Exam Neurological exam: Alert, CN II-XII Intact - Skin Skin Exam: Dry, Warm Results - Vital Signs Recent Vital Signs: Last Vital Signs Temp 97.8 F 09/27/18 01:32 Pulse 82 09/27/18 01:32 Resp 18 09/27/18 01:32 BP 160/87 H 09/27/18 01:32 Pulse Ox 97 09/27/18 01:32 - Labs Result Diagrams: 09/26/18 18:58 09/26/18 18:58 Labs: Laboratory Results - last 24 hr 09/26/18 09/26/18 09/26/18 18:58 18:58 18:58 WBC 8.0 RBC 4.46 Hgb 12.2 Hct 37.9 MCV 84.9 D MCH 27.4 MCHC 32.2 L RDW 19.1 H Plt Count 208 MPV 7.9 Neut % (Auto) 55.9 Lymph % (Auto) 28.7 [place] % (Auto) 9.2 Eos % (Auto) 5.2 H Baso % (Auto) 1.0 Neut # (Auto) 4.5 Lymph # (Auto) 2.3 [place] # (Auto) 0.7 Eos # (Auto) 0.4 Baso # (Auto) 0.1 Sodium 137 Potassium 4.4 Chloride 93 L Carbon Dioxide 34 H Anion Gap 14 BUN 29 H Creatinine 9.4 H* D Est GFR ( Amer) 7 Est GFR (Non-Af Amer) 6 Random Glucose 102 Calcium 8.6 Phosphorus 4.3 Magnesium 2.5 H Total Bilirubin 0.6 AST 46 ALT 14 L D Alkaline Phosphatase 85 Total Protein 8.4 H Albumin 4.3 Globulin 4.0 H Albumin/Globulin Ratio 1.1 Urine Color Yellow Urine Clarity Hazy Urine pH 7.0 Ur Specific [place] 1.024 Urine Protein 3+ H Urine Glucose (UA) 1+ H Urine Ketones Negative Urine Blood Negative Urine Nitrate Negative Urine Bilirubin Negative Urine Urobilinogen Normal Ur Leukocyte Esterase Neg Urine WBC (Auto) 96 H Urine RBC (Auto) 7 H Ur Squamous Epith Cells < 1 Urine Bacteria Rare Urine Opiates Screen Urine Methadone Screen Ur Barbiturates Screen Ur Phencyclidine Scrn Ur Amphetamines Screen U Benzodiazepines Scrn U Oth Cocaine Metabols U Cannabinoids Screen Alcohol, Quantitative < 10 09/26/18 18:58 WBC RBC Hgb Hct MCV MCH MCHC RDW Plt Count MPV Neut % (Auto) Lymph % (Auto) [place] % (Auto) Eos % (Auto) Baso % (Auto) Neut # (Auto) Lymph # (Auto) [place] # (Auto) Eos # (Auto) Baso # (Auto) Sodium Potassium Chloride Carbon Dioxide Anion Gap BUN Creatinine Est GFR ( Amer) Est GFR (Non-Af Amer) Random Glucose Calcium Phosphorus Magnesium Total Bilirubin AST ALT Alkaline Phosphatase Total Protein Albumin Globulin Albumin/Globulin Ratio Urine Color Urine Clarity Urine pH Ur Specific [place] Urine Protein Urine Glucose (UA) Urine Ketones Urine Blood Urine Nitrate Urine Bilirubin Urine Urobilinogen Ur Leukocyte Esterase Urine WBC (Auto) Urine RBC (Auto) Ur Squamous Epith Cells Urine Bacteria Urine Opiates Screen Positive H Urine Methadone Screen Negative Ur Barbiturates Screen Negative Ur Phencyclidine Scrn Negative Ur Amphetamines Screen Negative U Benzodiazepines Scrn Negative U Oth Cocaine Metabols Positive H U Cannabinoids Screen Positive H Alcohol, Quantitative Assessment & Plan (1) Opioid use disorder, severe, dependence Status: Acute (2) ESRD (end stage renal disease) on dialysis Status: Chronic (3) HTN (hypertension) Status: Chronic - Assessment and Plan (Free Text) Plan: dialysis today and TTS
--- NOTE | 2018-09-27 11:09 | PCM.PSYCH ---
Initial Psychiatric Evaluation - Initial Psychiatric Evaluation Type of Admission: Voluntary Legal Status: Capacity Chief Complaint (in patient's own words): I came to get help..' History of Present Illness and Precipitating Events: Patient is 48 years old -[place] male, who came to the [facility] ED to get help in heroin detox. Patient denies any past history of any inpatient psychiatric hospitalizations and he denies any history of follow-up with any psychiatrist. However he reports history of one detox at [address] [place] [address], last year. Patient reports history of injecting up to 30 bags of heroin daily along with some cocaine. Yesterday while abusing heroin he became increasingly irritable and started having withdrawal symptoms, so he came to the [facility] to get help He reports withdrawal symptoms including nausea, vomiting, cramps, joint pains, headaches, anxiety and sweating. He reports irritability and agitation. However he denies any feelings of hopelessness or helplessness. He denies any suicidal ideation or any homicidal ideation. He denies any auditory hallucinations or any paranoia. He also reports of abusing cocaine and marijuana but denies any other substances. Past medical history HTN, ESRD S/P Dialysis, Current Medications: Active Medications Generic Name Dose Route Start Last Admin Trade Name Freq PRN Reason Stop Dose Admin Aspirin 81 mg 09/27/18 10:00 Ecotrin PO DAILY SUJEY Clonidine HCl 0.1 mg 09/26/18 22:41 09/27/18 02:25 Catapres PO 0.1 mg Q6 PRN Administration s/sx of withdrawal cows=5 Hydralazine HCl 25 mg 09/27/18 10:00 Apresoline PO TID SUJEY Hydroxyzine HCl 25 mg 09/26/18 22:40 Atarax PO Q6 PRN Anxiety Ibuprofen 600 mg 09/26/18 22:44 Motrin Tab PO Q6 PRN Pain, moderate (4-7) Losartan Potassium 50 mg 09/27/18 18:00 Cozaar PO QPM SUJEY Trazodone HCl 50 mg 09/26/18 22:41 Desyrel PO HS PRN Insomnia Trazodone HCl 50 mg 09/27/18 01:22 Desyrel PO HS PRN Insomnia Vitamin B Complex/Vit C/Folic Acid 1 tab 09/27/18 08:00 Nephro-Enrike PO 0800 [facility] Past Psychiatric History - Past Psychiatric History Previous Treatment History: Inpatient Pertinent Medical Hx (Current Medical&Sleep Prob, Allergies): Allergies Allergy/AdvReac Type Severity Reaction Status Date / Time No Known Allergies Allergy Verified 09/26/18 18:12 Aspirin [Ecotrin] 81 mg PO DAILY #30 tabec 07/08/17 Clindamycin [Cleocin] 300 mg PO TID #30 cap 07/08/17 Losartan [Cozaar] 50 mg PO QPM #30 tab 07/08/17 Saccharomyces Boulardi [Florastor] 250 mg PO BID #20 cap 07/08/17 Vitamin B Complex/Vit C/Folic [Nephro-Ernike] 1 tab PO 0800 tab 07/08/17 hydrALAZINE [Apresoline] 25 mg PO TID #90 tab 07/08/17 traZODone [Desyrel] 50 mg PO HS PRN #30 tab 07/08/17 Review of Systems - Review of Systems All systems: reviewed and no additional remarkable complaints except - Psychiatric Psychiatric: Anxiety, Irritability Mental Status Examination - Personal Presentation Personal Presentation: Looks stated age - Affect Affect: Constricted - Motor Activity Motor Activity: Calm - Reliability in Providing Information Reliability in Providing Information: Good - Speech Speech: Organized - Mood Mood: Anxious - Formal Thought Process Formal Thought Process: No Impairment - Obsessions/Compulsions Obsessions: No Compulsions: No - Cognitive Functions Orientation: Person, Place, Situation, Time Sensorium: Alert Attention/Concentration: Attentive Abstract Thinking: [place] Estimate of Intelligence: Below average Judgement: Imparied, as evidence by: Poor judgement, Intact, as evidence by: Insight regarding need for hospitalization - Risk Risk: Withdrawal, Diminished functioning - Limitations Limitations: Living alone DSM 5 DX - DSM 5 DSM 5 Diagnosis: Opioid withdrawal Opioid use disorder severe Cocaine use disorder severe Cannabis use disorder moderate - Recommended/Plan of Treatment Treatment Recommendations and Plan of Treatment: Opioid withdrawal Opioid use disorder severe Cocaine use disorder severe Cannabis use disorder moderate CA for abstinence CBT for relapse prevention Encourage MAT Taper with methadone Gabapentin for augmentation As needed medications All risks, benefits and alternatives of the meds discussed, and the pt agreed and understood. Attend groups and activities Supportive therapy and psychoeducation Refer to rehab or IOP, and self-help groups Teach healthy lifestyle methods, i.e. diet, exercise, meditation Smoking cessation with CA Nicotine patch if needed - Smoking Cessation Smoking Cessation Initiated: No
[2018-09-27] MEDS ORDERED: Aluminum Hydroxide/Magnesium Hydroxide Susp (30 mL) PO PRN (11:11)
--- NOTE | 2018-09-27 11:18 | RAD ---
Date of service: 09/26/2018 HISTORY: ESRD COMPARISON: No prior. TECHNIQUE: Chest PA and lateral views FINDINGS: LUNGS: No active pulmonary disease. PLEURA: No significant pleural effusion identified. No pneumothorax apparent. CARDIOVASCULAR: No aortic atherosclerotic calcification present. Normal cardiac size. No pulmonary vascular congestion. OSSEOUS STRUCTURES: No significant abnormalities. VISUALIZED UPPER ABDOMEN: Normal. OTHER FINDINGS: None. IMPRESSION: No active disease.
--- NOTE | 2018-09-27 11:29 | CP.PCM.CON ---
History of Present Illness - History of Present Illness History of Present Illness: Spoke with the Nurse on & [place] in the morning. Nephrology service transferred to Dr Herman Past Patient History - Past Medical History & Family History Past Medical History?: Yes Past Family History: Reviewed and not pertinent - Past Social History Smoking Status: Heavy Smoker > 10 Cigarettes Daily Chewing Tobacco Use: No Cigar Use: No Alcohol: Occasional Drugs: Opiates - CARDIAC Hx Hypertension: Yes - PULMONARY Hx Tuberculosis: No - NEUROLOGICAL Hx Seizures: No - RENAL Hx Chronic Kidney Disease: Yes Hx Dialysis: Yes - HEMATOLOGICAL/ONCOLOGICAL Hx Human Immunodeficiency Virus (HIV): No - INTEGUMENTARY Hx Dermatological Problems: No - MUSCULOSKELETAL/RHEUMATOLOGICAL Hx Falls: No - GASTROINTESTINAL Hx Gastrointestinal Disorders: No - GENITOURINARY/GYNECOLOGICAL Hx Sexually Transmitted Disorders: No - PSYCHIATRIC Hx Substance Use: Yes - SURGICAL HISTORY Hx Surgeries: Yes Hx Vascular Access Device: Yes (LEFT LOWER ARM AV FISTULA) - ANESTHESIA Hx Anesthesia: Yes Hx Anesthesia Reactions: No Hx Malignant Hyperthermia: No Meds Allergies/Adverse Reactions: Allergies Allergy/AdvReac Type Severity Reaction Status Date / Time No Known Allergies Allergy Verified 09/26/18 18:12 - Medications Medications: Current Medications Al Hydrox/Mg Hydrox/Simethicone (Maalox 30 Ml) 30 ml PO TID PRN PRN Reason: Indigestion / Heartburn Aspirin (Ecotrin) 81 mg PO DAILY [facility] Clonidine HCl (Catapres) 0.1 mg PO Q6 PRN PRN Reason: s/sx of withdrawal cows=5 Last Admin: 09/27/18 02:25 Dose: 0.1 mg Dicyclomine HCl (Bentyl) 10 mg PO Q6 PRN PRN Reason: Muscle spasm Hydralazine HCl (Apresoline) 25 mg PO TID [facility] Hydroxyzine HCl (Atarax) 25 mg PO Q6 PRN PRN Reason: Anxiety Ibuprofen (Motrin Tab) 600 mg PO Q6 PRN PRN Reason: Pain, moderate (4-7) Loperamide HCl (Imodium) 2 mg PO Q8 PRN PRN Reason: Diarrhea Losartan Potassium (Cozaar) 50 mg PO QPM [facility] Methadone HCl (Methadone) 0 mg PO Q24H [facility]; Taper Stop: 10/01/18 11:14 Ondansetron HCl (Zofran Tab) 4 mg PO Q8 PRN PRN Reason: Nausea/Vomiting Pseudoephedrine HCl (Sudafed Tab) 60 mg PO QID PRN PRN Reason: Nasal/Sinus Congestion Trazodone HCl (Desyrel) 50 mg PO HS PRN PRN Reason: Insomnia Trazodone HCl (Desyrel) 50 mg PO HS PRN PRN Reason: Insomnia Vitamin B Complex/Vit C/Folic Acid (Nephro-Enrike) 1 tab PO 0800 SUJEY Results - Vital Signs Recent Vital Signs: Last Vital Signs Temp 97.4 F L 09/27/18 10:20 Pulse 67 09/27/18 10:20 Resp 16 09/27/18 10:20 BP 157/107 H 09/27/18 10:50 Pulse Ox 98 09/27/18 10:20 - Labs Result Diagrams: 09/26/18 18:58 09/26/18 18:58 Labs: Laboratory Results - last 24 hr 09/26/18 09/26/18 09/26/18 18:58 18:58 18:58 WBC 8.0 RBC 4.46 Hgb 12.2 Hct 37.9 MCV 84.9 D MCH 27.4 MCHC 32.2 L RDW 19.1 H Plt Count 208 MPV 7.9 Neut % (Auto) 55.9 Lymph % (Auto) 28.7 [place] % (Auto) 9.2 Eos % (Auto) 5.2 H Baso % (Auto) 1.0 Neut # (Auto) 4.5 Lymph # (Auto) 2.3 [place] # (Auto) 0.7 Eos # (Auto) 0.4 Baso # (Auto) 0.1 Sodium 137 Potassium 4.4 Chloride 93 L Carbon Dioxide 34 H Anion Gap 14 BUN 29 H Creatinine 9.4 H* D Est GFR ( Amer) 7 Est GFR (Non-Af Amer) 6 Random Glucose 102 Calcium 8.6 Phosphorus 4.3 Magnesium 2.5 H Total Bilirubin 0.6 AST 46 ALT 14 L D Alkaline Phosphatase 85 Total Protein 8.4 H Albumin 4.3 Globulin 4.0 H Albumin/Globulin Ratio 1.1 Urine Color Yellow Urine Clarity Hazy Urine pH 7.0 Ur Specific [place] 1.024 Urine Protein 3+ H Urine Glucose (UA) 1+ H Urine Ketones Negative Urine Blood Negative Urine Nitrate Negative Urine Bilirubin Negative Urine Urobilinogen Normal Ur Leukocyte Esterase Neg Urine WBC (Auto) 96 H Urine RBC (Auto) 7 H Ur Squamous Epith Cells < 1 Urine Bacteria Rare Urine Opiates Screen Urine Methadone Screen Ur Barbiturates Screen Ur Phencyclidine Scrn Ur Amphetamines Screen U Benzodiazepines Scrn U Oth Cocaine Metabols U Cannabinoids Screen Alcohol, Quantitative < 10 09/26/18 18:58 WBC RBC Hgb Hct MCV MCH MCHC RDW Plt Count MPV Neut % (Auto) Lymph % (Auto) [place] % (Auto) Eos % (Auto) Baso % (Auto) Neut # (Auto) Lymph # (Auto) [place] # (Auto) Eos # (Auto) Baso # (Auto) Sodium Potassium Chloride Carbon Dioxide Anion Gap BUN Creatinine Est GFR ( Amer) Est GFR (Non-Af Amer) Random Glucose Calcium Phosphorus Magnesium Total Bilirubin AST ALT Alkaline Phosphatase Total Protein Albumin Globulin Albumin/Globulin Ratio Urine Color Urine Clarity Urine pH Ur Specific [place] Urine Protein Urine Glucose (UA) Urine Ketones Urine Blood Urine Nitrate Urine Bilirubin Urine Urobilinogen Ur Leukocyte Esterase Urine WBC (Auto) Urine RBC (Auto) Ur Squamous Epith Cells Urine Bacteria Urine Opiates Screen Positive H Urine Methadone Screen Negative Ur Barbiturates Screen Negative Ur Phencyclidine Scrn Negative Ur Amphetamines Screen Negative U Benzodiazepines Scrn Negative U Oth Cocaine Metabols Positive H U Cannabinoids Screen Positive H Alcohol, Quantitative
[2018-09-28] MEDS: Multivitamin Vitamin B Complex (Nephro-Vite) Tab PO SCH (07:58)
--- NOTE | 2018-09-28 16:04 | PCM.PYCHPN ---
Psychiatric Progress Note - Psychiatric Progress Note Patient seen today, length of contact: 15 min Patient Chief Complaint: I am still withdrawing. Problems Identified/Issues Discussed: Patient seen and evaluated, chart reviewed and discussed with the nurse. As per staff, he is taking medications but denies any effects. Patient reports some improvement in the withdrawal symptoms but still reports anxiety, headaches, cramps, joint pains and sweating. He reports anxiety but denies any manic or psychotic symptom. He denies any suicidal ideation or homicidal ideation. COWS is still high and patient is high risk for discharge. Symptoms are improving gradually but he needs to stay longer for further stabilization. Supportive therapy and psychoeducation were given Medication Change: Yes Medical Record Reviewed: Yes Mental Status Examination - Cognitive Function Orientation: Person, Place, Situation, Time Memory: Intact Attention: WNL Concentration: Poor Association: WNL Fund of Knowledge: Poor - Mood Mood: Anxious - Affect Affect: Constricted - Speech Speech: Soft - Formal Thought Process Formal Thought Process: No Impairment - Suicidal Ideation Suicidal Ideation: No - Homicidal Ideation Homicidal Ideation: No Goal/Treatment Plan - Goal/Treatment Plan Need for Continued Stay: Remain at risks for inpatient hospitalization Progress Toward Problem(s) and Goals/Treatment Plan: Opioid withdrawal Opioid use disorder severe Cocaine use disorder severe Cannabis use disorder moderate MN for abstinence CBT for relapse prevention Encourage MAT Taper with methadone Gabapentin for augmentation As needed medications All risks, benefits and alternatives of the meds discussed, and the pt agreed and understood. Attend groups and activities Supportive therapy and psychoeducation Refer to rehab or IOP, and self-help groups Teach healthy lifestyle methods, i.e. diet, exercise, meditation Smoking cessation with MN Nicotine patch if needed - Smoking Cessation Smoking Cessation Initiated: Yes
[2018-09-29] MEDS: Multivitamin Vitamin B Complex (Nephro-Vite) Tab PO SCH (07:52)
--- NOTE | 2018-09-29 13:32 | PCM.PYCHPN ---
Psychiatric Progress Note - Psychiatric Progress Note Patient seen today, length of contact: 15 min Medication Change: Yes (detox changes daily) Medical Record Reviewed: Yes Mental Status Examination - Cognitive Function Orientation: Person, Place, Situation, Time Memory: Intact Attention: WNL Concentration: Poor Association: WNL Fund of Knowledge: Poor - Mood Mood: Anxious - Affect Affect: Constricted - Speech Speech: Soft - Formal Thought Process Formal Thought Process: No Impairment - Suicidal Ideation Suicidal Ideation: No - Homicidal Ideation Homicidal Ideation: No Goal/Treatment Plan - Goal/Treatment Plan Need for Continued Stay: Remain at risks for inpatient hospitalization
[2018-09-30 06:00] VITALS: RESP 20
[2018-09-30] MEDS: Multivitamin Vitamin B Complex (Nephro-Vite) Tab PO SCH (08:08)
--- NOTE | 2018-09-30 09:43 | CP.PCM.PN ---
Subjective - Date & Time of Evaluation Date of Evaluation: 09/30/18 Time of Evaluation: 09:40 - Subjective Subjective: presently on dialysis awake alert comfortable afebrile bp mildly elevated ROS entirely negative except for cough productive of green sputum continues to smoke Objective - Vital Signs/Intake and Output Vital Signs (last 24 hours): Temp Pulse Resp BP Pulse Ox 98.0 F 61 20 162/97 H 95 09/30/18 08:45 09/30/18 08:45 09/30/18 08:45 09/30/18 08:45 09/30/18 08:45 - Medications Medications: Current Medications Al Hydrox/Mg Hydrox/Simethicone (Maalox 30 Ml) 30 ml PO TID PRN PRN Reason: Indigestion / Heartburn Aspirin (Ecotrin) 81 mg PO DAILY [facility] Last Admin: 09/29/18 09:57 Dose: 81 mg Clonidine HCl (Catapres) 0.1 mg PO Q6 PRN PRN Reason: s/sx of withdrawal cows=5 Last Admin: 09/29/18 13:55 Dose: 0.1 mg Dicyclomine HCl (Bentyl) 10 mg PO Q6 PRN PRN Reason: Muscle spasm Gabapentin (Neurontin) 100 mg PO TID [facility] Last Admin: 09/29/18 17:00 Dose: 100 mg Hydralazine HCl (Apresoline) 25 mg PO TID [facility] Last Admin: 09/29/18 16:59 Dose: 25 mg Hydroxyzine HCl (Atarax) 25 mg PO Q6 PRN PRN Reason: Anxiety Last Admin: 09/29/18 16:14 Dose: 25 mg Ibuprofen (Motrin Tab) 600 mg PO Q6 PRN PRN Reason: Pain, moderate (4-7) Loperamide HCl (Imodium) 2 mg PO Q8 PRN PRN Reason: Diarrhea Losartan Potassium (Cozaar) 50 mg PO QPM [facility] Last Admin: 09/29/18 17:00 Dose: 50 mg Methadone HCl (Methadone) 10 mg PO Q24H [facility]; Taper Stop: 10/01/18 09:59 Last Admin: 09/29/18 09:27 Dose: 10 mg Ondansetron HCl (Zofran Tab) 4 mg PO Q8 PRN PRN Reason: Nausea/Vomiting Pseudoephedrine HCl (Sudafed Tab) 60 mg PO QID PRN PRN Reason: Nasal/Sinus Congestion Trazodone HCl (Desyrel) 50 mg PO HS PRN PRN Reason: Insomnia Last Admin: 09/28/18 22:22 Dose: 50 mg Vitamin B Complex/Vit C/Folic Acid (Nephro-Enrike) 1 tab PO 0800 SUJEY Last Admin: 09/30/18 08:08 Dose: 1 tab - Labs Labs: 09/26/18 18:58 09/26/18 18:58 - Constitutional Appears: Well, No Acute Distress - Eye Exam Eye Exam: Normal appearance - ENT Exam ENT Exam: Mucous Membranes Moist - Respiratory Exam Respiratory Exam: Clear to Ausculation Bilateral, NORMAL BREATHING PATTERN - Cardiovascular Exam Cardiovascular Exam: REGULAR RHYTHM. absent: JVD - GI/Abdominal Exam GI & Abdominal Exam: Soft. absent: Distended, Tenderness - Extremities Exam Extremities Exam: absent: Calf Tenderness - Neurological Exam Neurological Exam: Alert, Awake - Psychiatric Exam Psychiatric exam: Normal Mood - Skin Skin Exam: Dry, Warm Assessment and Plan (1) ESRD (end stage renal disease) on dialysis Status: Chronic (2) Drug dependence Status: Chronic (3) HTN (hypertension) Status: Chronic - Assessment and Plan (Free Text) Plan: try to ultrafilter wants to sign off early advised against this
[2018-09-30 10:57] VITALS: PULSE 68; TEMP 97.8; O2SAT 100
--- NOTE | 2018-09-30 11:51 | PCM.PYCHDC ---
Mental Status Examination - Mental Status Examination Orientation: Person Discharge Summary - Discharge Note Consultations:: List each consultation separately and include: 1. Reason for request. 2. Findings. 3. Follow-up Summary of Hospital Course include:: 1. Description of specific treatment plan utilized for patients during their course of treatmen. 2. Summarize the time- course for resolution of acute symptoms and/or regressed behaviors. 3. Describe issues identified and worked on during hospitalization. 4. Describe medication utilized. 5. Describe medical problems identified and treated. 6. Reassessment of suicide risk Summary of Hospital Course: He will continue his HD and attend an IOP in [facility]. - Final Diagnosis (DSM 5) Condition upon Discharge: STABLE Disposition: HOME/ ROUTINE Prescriptions/Medication Reconciliation: Aspirin [Ecotrin] 81 mg PO DAILY #30 tabec hydrALAZINE [Apresoline] 25 mg PO TID #90 tab Losartan [Cozaar] 50 mg PO QPM #30 tab traZODone [Desyrel] 50 mg PO HS PRN #30 tab PRN Reason: Insomnia
[2018-09-30 11:59] VITALS: BP 189/110
== END 2018-09-30 12:45 | disposition home or self-care (01) | DRG 744 ==
LOC: C.ER 17:57 → C.7D 21:34
PROVIDERS: ADMIT Psychiatry & Neurology Psychiatry; ATTEND Psychiatry & Neurology Psychiatry
PROC: HZ2ZZZZ Detoxification Services for Substance Abuse Treatment (ICD-10-PCS; principal; 2018-09-26)
PROC: HZ80ZZZ Medication Management for Substance Abuse Treatment, Nicotine Replacement (ICD-10-PCS; 2018-09-26)
PROC: HZ46ZZZ Group Counseling for Substance Abuse Treatment, Psychoeducation (ICD-10-PCS; 2018-09-26)
PROC: HZ59ZZZ Individual Psychotherapy for Substance Abuse Treatment, Supportive (ICD-10-PCS; 2018-09-26)
PROC: 5A1D70Z Performance of Urinary Filtration, Intermittent, Less than 6 Hours Per Day (ICD-10-PCS; 2018-09-27)
PROC: 5A1D70Z Performance of Urinary Filtration, Intermittent, Less than 6 Hours Per Day (ICD-10-PCS; 2018-09-30)
DX: F11.23 Opioid dependence with withdrawal (principal); F14.20 Cocaine dependence, uncomplicated; I12.0 Hypertensive chronic kidney disease with stage 5 chronic kidney disease or end stage renal disease; F12.20 Cannabis dependence, uncomplicated; N18.6 End stage renal disease; F17.210 Nicotine dependence, cigarettes, uncomplicated; N25.81 Secondary hyperparathyroidism of renal origin; F41.9 Anxiety disorder, unspecified; D64.9 Anemia, unspecified; E83.39 Other disorders of phosphorus metabolism; Z99.2 Dependence on renal dialysis